=== PATIENT | female | born 1970 | race Caucasian/White ===

== ENCOUNTER 2017-01-30 19:27 | Inpatient (IN) | payer MEDICAID ==
--- NOTE | 2017-01-30 20:02 | ER Document Report ---
ED Medical Screen (RME) - General Chief Complaint: Breathing Difficulty Stated Complaint: DIFFICULTY BREATHING Notes: 46 yo female with hx/o COPD c/o shortness of breath, cough x 1 week. productive , clear sputum. O2 Sat 81% @ triage + smoker using home nebs without improvement PCM - Dr Shi, Maciel lungs coarse with wheezes throughout TRAVEL OUTSIDE OF THE [place] IN LAST 30 DAYS: No - Related Data Allergies/Adverse Reactions: ibuprofen [From Motrin] Allergy (Severe, Verified 04/01/14 15:13) Swelling of Throat Past Medical History - Past Medical History Cardiac Medical History: Denies: Hx Coronary Artery Disease, Hx Heart Attack, Hx Hypertension Pulmonary Medical History: Reports: Hx Asthma, Hx Bronchitis, Hx COPD, Hx Pneumonia Denies: Hx Tuberculosis Neurological Medical History: Denies: Hx Cerebrovascular Accident, Hx Seizures Musculoskeltal Medical History: Denies Hx Arthritis Psychiatric Medical History: Reports: Hx Depression Past Surgical History: Denies: Hx Pacemaker - Immunizations Immunizations up to date: Yes Hx Diphtheria, Pertussis, Tetanus Vaccination: Yes Physical Exam - Vital signs Vitals: Temp Pulse Resp BP Pulse Ox 98.2 F 105 H 16 118/49 L 80 L 01/30/17 19:54 01/30/17 19:54 01/30/17 19:54 01/30/17 19:54 01/30/17 19:54 Course - Vital Signs Vital signs: Temp Pulse Resp BP Pulse Ox 98.2 F 105 H 16 118/49 L 80 L 01/30/17 19:54 01/30/17 19:54 01/30/17 19:54 01/30/17 19:54 01/30/17 19:54
[2017-01-30] MEDS ORDERED: IPRATROPIUM/ALBUTEROL 0.5-2.5 MG/3 ML AMPUL NEB ONE (20:04)
[2017-01-30] MEDS ORDERED: PREDNISONE 20 MG TABLET PO ONE (20:04)
--- NOTE | 2017-01-30 20:24 | ER Document Report ---
ED Respiratory Problem - General Mode of Arrival: Ambulatory TRAVEL OUTSIDE OF THE [place] IN LAST 30 DAYS: No - HPI Patient complains to provider of: COPD Onset: Last week Duration: Worse/persistent Context: Hx COPD, Smoker Cough: Productive Sputum amount: Small Sputum color: Clear At home treatment: Bronchodilators Associated symptoms: Cough, Short of breath, Wheezing <SALVADOR KAUFFMAN - Last Filed: 01/30/17 20:25> <JUANCHO KIMBALL - Last Filed: 01/30/17 23:16> - General Chief Complaint: Breathing Difficulty Stated Complaint: DIFFICULTY BREATHING Notes: Patient is a 46-year-old female presenting to the emergency department chief complaint difficulty breathing for the past week. Patient states that she has been coughing with clear sputum. Patient has a nebulizer at home that she uses every 4 hours, and she states that her breathing worsens when she gets up and walks. Patient is a current every day smoker with history of COPD, and the last time she was admitted for a problem like this was 1 year ago. Patient's primary care physician is Dr. Maciel and her photonics engineering technologist is Dr. Shi (SALVADOR KAUFFMAN) - Related Data Allergies/Adverse Reactions: ibuprofen [From Motrin] Allergy (Severe, Verified 04/01/14 15:13) Swelling of Throat Home Medications: Current Home Medications Ipratropium/Albuterol Sulfate [Duoneb 3 ml Ampul] 3 ml NEB [id number] PRN 01/30/17 [ History] Past Medical History - General Information source: Patient - Social History Smoking Status: Current Every Day Smoker Chew tobacco use (# tins/day): No Frequency of alcohol use: None Drug Abuse: None Family History: Reviewed & Not Pertinent Patient has suicidal ideation: No Patient has homicidal ideation: No - Past Medical History Cardiac Medical History: Denies: Hx Coronary Artery Disease, Hx Heart Attack, Hx Hypertension Pulmonary Medical History: Reports: Hx Asthma, Hx Bronchitis, Hx COPD, Hx Pneumonia Denies: Hx Tuberculosis Neurological Medical History: Denies: Hx Cerebrovascular Accident, Hx Seizures Renal/ Medical History: Denies: Hx Peritoneal Dialysis Musculoskeltal Medical History: Denies Hx Arthritis Psychiatric Medical History: Reports: Hx Depression Past Surgical History: Denies: Hx Pacemaker - Immunizations Immunizations up to date: Yes Hx Diphtheria, Pertussis, Tetanus Vaccination: Yes Hx Pneumococcal Vaccination: 10/08/12 <SALVADOR KAUFFMAN - Last Filed: 01/30/17 20:25> Review of Systems - Review of Systems Constitutional: No symptoms reported EENT: No symptoms reported Cardiovascular: No symptoms reported Respiratory: See HPI, Cough, Short of breath, Sputum, Wheezing Gastrointestinal: No symptoms reported Genitourinary: No symptoms reported Female Genitourinary: No symptoms reported Musculoskeletal: No symptoms reported Skin: No symptoms reported Hematologic/Lymphatic: No symptoms reported Neurological/Psychological: No symptoms reported -: Yes All other systems reviewed and negative <SALVADOR KAUFFMAN - Last Filed: 01/30/17 20:25> Physical Exam - General General appearance: Alert - HEENT Head: Normocephalic, Atraumatic Eyes: Normal Pupils: PERRL - Respiratory Breath sounds: Rhonchi, Wheezing - Diffuse inspiratory and expiratory wheezes and rhonchi. - Cardiovascular Rhythm: Tachycardia Heart sounds: Normal auscultation Murmur: No - Abdominal Inspection: Normal Distension: No distension Bowel sounds: Normal Tenderness: Nontender Organomegaly: No organomegaly - Back Back: Normal, Nontender - Extremities General upper extremity: Normal inspection, Nontender General lower extremity: Normal inspection, Nontender - Neurological Neuro grossly intact: Yes Cognition: Normal [place] Coma Scale Eye Opening: Spontaneous [place] Coma Scale Verbal: Oriented [place] Coma Scale Motor: Obeys Commands [place] Coma Scale Total: 15 Speech: Normal - Psychological Associated symptoms: Normal affect, Normal mood - Skin Skin Temperature: Warm Skin Moisture: Dry Skin Color: Normal <SALVADOR KAUFFMAN - Last Filed: 01/30/17 20:25> Course <SALVADOR KAUFFMAN - Last Filed: 01/30/17 20:25> - Laboratory Result Diagrams: 01/30/17 21:00 01/30/17 21:00 - Diagnostic Test Radiology reviewed: Image reviewed, Reports reviewed - Chest x-ray shows COPD - EKG Interpretation by Me EKG shows normal: Sinus rhythm, [place], Intervals, QRS Complexes, ST-T Waves Rate: Normal - 92 Rhythm: NSR Voltage: Consistant with LVH When compared to previous EKG there are: No significant change - Consults Dr. Maciel Time consulted: 22:45 Consulted provider: will see as inpatient <JUANCHO KIMBALL - Last Filed: 01/30/17 23:16> - Re-evaluation Re-evalutation: 01/30/17 22:48 After breathing treatments and a magnesium, the patient states she feels much better. She still does have diffusewheezes and rhonchi but they are much improved. She is not laboring to breathe as she was earlier. Her pulse ox is only 91% on 2 L nasal cannula. (JUANCHO KIMBALL) - Vital Signs Vital signs: Temp Pulse Resp BP Pulse Ox 98.2 F 105 H 11 L 124/58 L 91 L 01/30/17 19:54 01/30/17 19:54 01/30/17 22:31 01/30/17 22:30 01/30/17 22:31 - Laboratory Laboratory results interpreted by me: 01/30/17 01/30/17 21:00 21:00 WBC 15.4 H Hgb 11.5 L Hct 35.3 L MCH 26.7 L RDW 17.0 H Plt Count 572 H Seg Neutrophils % 79.7 H Lymphocytes % 11.9 L Absolute Neutrophils 12.3 H Chloride 97 L Carbon Dioxide 31 H AST 13 L Critical Care Note - Critical Care Note Total time excluding time spent on procedures (mins): 30 <JUANCHO KIMBALL - Last Filed: 01/30/17 23:16> Discharge <SALVADOR KAUFFMAN - Last Filed: 01/30/17 20:25> - Discharge Admitting Provider: [facility] Unit Admitted: Telemetry <JUANCHO KIMBALL - Last Filed: 01/30/17 23:16> - Discharge Clinical Impression: Chronic obstructive pulmonary disease with acute exacerbation, Hypoxemia, Tobacco abuse, Hypoxemia requiring supplemental oxygen Condition: Good Disposition: ADMITTED INPATIENT Scribe Attestation: 01/30/17 22:49 I personally performed the services described in the documentation, reviewed and edited the documentation which was dictated to the scribe in my presence, and it accurately records my words and actions. (JUANCHO KIMBALL) Scribe Documentation - Scribe Written by Arabella:: Salvador Kauffman 01/30/20172023 acting as scribe for :: Jeovanny <SALVADOR KAUFFMAN - Last Filed: 01/30/17 20:25>
[2017-01-30] MEDS ORDERED: METHYLPREDNISOLONE INJ 125 MG/2 ML SDV IV ONE (20:25)
[2017-01-30 21:23] LABS: ABSOLUTE EOSINOPHILS # (AUTO) 0.1 10^3/uL (0.0-0.6); ABSOLUTE LYMPHOCYTES (AUTO) 1.8 10^3/uL (0.5-4.7); ABSOLUTE MONOCYTES (AUTO) 1.2 10^3/uL (0.1-1.4); ABSOLUTE NEUT (AUTO) 12.3 10^3/uL (1.7-8.2); BASOPHILS % (AUTO) 0.2 % (0-2); EOSINOPHILS % (AUTO) 0.3 % (0-6); HEMATOCRIT 35.3 % (36.0-47.0); HEMOGLOBIN 11.5 g/dL (12.0-15.5); HGB HCT DIFFERENCE -0.8; LYMPHOCYTES % (AUTO) 11.9 % (13-45); MEAN CORPUSCULAR HEMOGLOBIN 26.7 pg (27.0-33.4); MEAN CORPUSCULAR HGB CONC 32.5 g/dL (32.0-36.0); MEAN CORPUSCULAR VOLUME 82 fl (80-97); MONOCYTES % (AUTO) 7.9 % (3-13); SEGMENTED NEUTROPHILS % (AUTO) 79.7 % (42-78); WHITE BLOOD COUNT 15.4 10^3/uL (4.0-10.5)
[2017-01-30] MEDS ORDERED: ALBUTEROL SULFATE 0.083% NEB 2.5 MG/3 ML AMPUL NEB ONE ×2 (21:27→22:45)
[2017-01-30] MEDS ORDERED: MAGNESIUM SULFATE INJ 8 MEQ/2 ML IV ONE (21:27)
[2017-01-30 21:38] LABS: ALBUMIN 3.7 g/dL (3.5-5.0); ALKALINE PHOSPHATASE 118 U/L (38-126); BILIRUBIN,DIRECT 0.2 mg/dL (0.0-0.4); BILIRUBIN,TOTAL 0.3 mg/dL (0.2-1.3); BLOOD UREA NITROGEN 12 mg/dL (7-20); CALCIUM 9.8 mg/dL (8.4-10.2); CHLORIDE 97 mmol/L (98-107); NEONATAL BILIRUBIN RESULT 0.2 mg/dL (0.1-1.1); SODIUM 142.6 mmol/L (137-145)
[2017-01-30 21:39] LABS: ALANINE AMINOTRANSFERASE 22 U/L (9-52); ANION GAP 15 (5-19); ASPARTATE AMINO TRANSFERASE 13 U/L (14-36); CARBON DIOXIDE 31 mmol/L (22-30); CREATININE RESULT 0.56 mg/dL (0.52-1.25); GLUCOSE 95 mg/dL (75-110); POTASSIUM 3.8 mmol/L (3.6-5.0); TOTAL PROTEIN 7.5 g/dL (6.3-8.2)
[2017-01-30] MEDS ORDERED: METHYLPREDNISOLONE INJ 125 MG/2 ML SDV ONE (22:11)
[2017-01-30] MEDS ORDERED: NORMAL SALINE 1000 ML 1,000 ML IV PRN (22:47)
[2017-01-30 22:49] LABS: ADD ON TESTING BLD IN LAB ACKNOWLEDGE
[2017-01-30 22:58] LABS: CREATINE KINASE 35 U/L (30-135)
[2017-01-31] MEDS ORDERED: LEVOFLOXACIN 500 MG/D5W RTU 500 MG/100 ML RTUPB IV ONE
[2017-01-31] MEDS: ACETAMINOPHEN 325 MG TABLET PO PRN ×3 (01:19→22:25)
[2017-01-31] MEDS ORDERED: METHYLPREDNISOLONE INJ 125 MG/2 ML SDV IV SCH ×2 (06:00→12:00)
[2017-01-31] MEDS: LANSOPRAZOLE 15 MG TAB.RAP.DR PO SCH (06:19)
[2017-01-31 06:55] LABS: HEMATOCRIT 33.4 % (36.0-47.0); HEMOGLOBIN 10.9 g/dL (12.0-15.5); HGB HCT DIFFERENCE -0.7; MEAN CORPUSCULAR HGB CONC 32.6 g/dL (32.0-36.0); MEAN CORPUSCULAR VOLUME 83 fl (80-97); RED BLOOD COUNT 4.04 10^6/uL (3.72-5.28); RED CELL DISTRIBUTION WIDTH 17.2 % (11.5-14.0); WHITE BLOOD COUNT 10.6 10^3/uL (4.0-10.5)
[2017-01-31 07:15] LABS: ANION GAP 12 (5-19); BLOOD UREA NITROGEN 10 mg/dL (7-20); CALCIUM 9.4 mg/dL (8.4-10.2); CARBON DIOXIDE 30 mmol/L (22-30); CHLORIDE 98 mmol/L (98-107); CREATININE RESULT 0.42 mg/dL (0.52-1.25); GLUCOSE 136 mg/dL (75-110); POTASSIUM 4.6 mmol/L (3.6-5.0)
[2017-01-31 07:39] LABS: BASOPHILS % (MANUAL) 0 % (0-2); EOSINOPHILS % (MANUAL) 0 % (0-6); LYMPHOCYTES % (MANUAL) 3 % (13-45); TOTAL CELLS COUNTED 100
[2017-01-31 07:40] LABS: ANISOCYTOSIS 1+; HYPOCHROMASIA SLIGHT; POLYCHROMASIA SLIGHT; TOXIC GRANULATION SLIGHT
[2017-01-31] MEDS ORDERED: ENOXAPARIN SODIUM INJ 40 MG/0.4 ML DISP.SYRIN SUBCUT SCH (08:00)
--- NOTE | 2017-01-31 08:16 | EKG REPORT ---
SEVERITY:- ABNORMAL ECG - SINUS RHYTHM PROBABLE LEFT VENTRICULAR HYPERTROPHY : Confirmed by: Olive Escobar 31-Jan-2017 08:15:38
[2017-01-31] MEDS: ALBUTEROL SULFATE 0.083% NEB 2.5 MG/3 ML AMPUL NEB PRN ×2 (08:32→23:40)
[2017-01-31] MEDS: IPRATROPIUM/ALBUTEROL 0.5-2.5 MG/3 ML AMPUL NEB SCH ×4 (08:34→19:36)
[2017-01-31] MEDS ORDERED: ENOXAPARIN SODIUM INJ 30 MG/0.3 ML DISP.SYRIN SUBCUT ONE (10:00)
[2017-01-31 11:01] LABS: ARTERIAL BLOOD BASE EXCESS 6.4 mmol/L; ARTERIAL BLOOD O2 SATURATION 94.7 % (94-98)
--- NOTE | 2017-01-31 12:23 | PDOC CONSULTATION ---
Consultation Consult Date: 01/31/17 Attending physician:: BETSY BOOKER Consult reason:: dyspnea History of Present Illness Admission Date/PCP: 01/30/17 22:47 BETSY BOOKER MD History of Present Illness: GIOVANNI CÁRDENAS is a 46 year old female known to me from prior admissions for exacerbation of asthma and COPD presents with progressive shortness of breath that has been going on for the last 2-3 weeks but has been getting worse. She denies nausea vomiting fevers chills she has a cough is usually dry nonproductive she denies hemoptysis. She admits to occasionally choking on food she eats too fast. Her CT scan on admission is dramatically different than the CT scan from February 2016 which could represent a malignancy hypersensitivity pneumonitis with a superimposed upon pneumonia. Past Medical History Cardiac Medical History: Denies: Coronary Artery Disease, Myocardial Infarction, Hypertension Pulmonary Medical History: Reports: Asthma, Bronchitis, Chronic Obstructive Pulmonary Disease (COPD), Pneumonia Denies: Tuberculosis Neurological Medical History: Denies: Seizures Musculoskeltal Medical History: Denies: Arthritis Psychiatric Medical History: Reports: Depression Hematology: Denies: Anemia Past Surgical History Past Surgical History: Denies: Pacemaker Social History Information Source: Patient, [facility] Records Smoking Status: Former Smoker Last Time Smoked: AUGUST 2016 Passive smoke exposure as: Both Frequency of Alcohol Use: None Hx Recreational Drug Use: No Drugs: None Hx Prescription Drug Abuse: No Family History Family History: Reviewed & Not Pertinent Parental Family History Reviewed: Yes Children Family History Reviewed: Yes Sibling(s) Family History Reviewed.: Yes Medication/Allergy Home Medications: Albuterol Sulfate [Proair HFA Inhalation Aerosol 8.5 gm MDI] 2 puff IH Q4 Fluticasone Propionate [Flonase Nasal [place] 50 Mcg/[place] 16 gm] 1 spray NASL DAILY 01/31/17 Ipratropium/Albuterol Sulfate [Combivent Respimat Inhal [place]] 1 puff IH QID Ipratropium/Albuterol Sulfate [Duoneb 3 ml Ampul] 3 ml NEB RTDAILY 01/31/17 Montelukast Sodium [Singulair 10 mg Tablet] 10 mg PO QPM 01/31/17 Allergies/Adverse Reactions: ibuprofen [From Motrin] Allergy (Severe, Verified 01/31/17 02:27) Swelling of Throat Physical Exam Vital Signs: Temp Pulse Resp BP Pulse Ox 97.4 F 82 18 116/61 90 L 01/31/17 07:41 01/31/17 07:41 01/31/17 07:41 01/31/17 07:41 01/31/17 07:41 Intake & Output 01/30/17 01/31/17 02/01/17 06:59 06:59 06:59 Intake Total 655 Balance 655 Weight 43.1 kg General appearance: PRESENT: disheveled, mild distress, thin Head exam: PRESENT: atraumatic, normocephalic Eye exam: PRESENT: conjunctiva pale, EOMI, PERRLA Mouth exam: PRESENT: moist, neck supple Neck exam: ABSENT: carotid bruit, JVD, lymphadenopathy, thyromegaly Respiratory exam: PRESENT: decreased breath sounds, prolonged expiratory phas, rales, rhonchi, symmetrical, unlabored, wheezes Cardiovascular exam: PRESENT: irregular rhythm Pulses: PRESENT: normal radial pulses GI/Abdominal exam: PRESENT: normal bowel sounds, soft. ABSENT: distended, guarding, mass, organolmegaly, rebound, tenderness Rectal exam: PRESENT: deferred Musculoskeletal exam: PRESENT: normal inspection Neurological exam: PRESENT: alert, awake Psychiatric exam: PRESENT: normal mood Skin exam: PRESENT: dry, warm Results Laboratory Results: 01/31/17 05:55 01/31/17 05:55 01/31/17 01/31/17 05:55 05:55 WBC 10.6 H RBC 4.04 Hgb 10.9 L Hct 33.4 L MCV 83 MCH 27.0 MCHC 32.6 RDW 17.2 H Plt Count 474 H Seg Neutrophils % Not Reportable Lymphocytes % Not Reportable Monocytes % Not Reportable Eosinophils % Not Reportable Basophils % Not Reportable Absolute Neutrophils Not Reportable Absolute Lymphocytes Not Reportable Absolute Monocytes Not Reportable Absolute Eosinophils Not Reportable Absolute Basophils Not Reportable Sodium 140.0 Potassium 4.6 Chloride 98 Carbon Dioxide 30 Anion Gap 12 BUN 10 Creatinine 0.42 L Est GFR ( Amer) > 60 Est GFR (Non-Af Amer) > 60 Glucose 136 H Calcium 9.4 Impressions: Chest/Abdomen CTA 01/30/17 00:00 IMPRESSION: No pulmonary emboli. Marked interstitial and emphysematous changes. Acute opacities in the right middle lobe and at the right lung base. Consistent with pneumonia. There has been interval development of marked hilar and mediastinal adenopathy. Suspicious for malignancy. Chest X-Ray 01/30/17 20:27 IMPRESSION: COPD. NO ACUTE RADIOGRAPHIC FINDING IN THE CHEST. Assessment & Plan - Diagnosis (4) Apical bullous lung disease Is this a current diagnosis for this admission?: YesPlan: We will check alpha 1 antitrypsin phenotype and genotype
[2017-01-31] MEDS ORDERED: INFLUENZA ADLT QUAD (36MOS+) 2016-17 VAC 0.5 ML SYR IM PRN (12:55)
--- NOTE | 2017-01-31 13:25 | PDOC H&P ---
History of Present Illness Admission Date/PCP: 01/30/17 22:47 BETSY BOOKER MD Patient complains of: Shortness of the breath History of Present Illness: GIOVANNI CÁRDENAS is a 46 year old female known to me from prior admissions for exacerbation of asthma and COPD presents with progressive shortness of breath that has been going on for the last 2-3 weeks but has been getting worse. She denies nausea vomiting fevers chills she has a cough is usually dry nonproductive she denies hemoptysis. She admits to occasionally choking on food she eats too fast. Her CT scan on admission is dramatically different than the CT scan from February 2016 which could represent a malignancy hypersensitivity pneumonitis with a superimposed upon pneumonia. Patient is very noncompliance patient seen in my office last 2015 and patient's neighbor come and see very properly the patient's last smoking was August according to the patient's patient's currently feeling better after the steroid and nebulizer treatments without any chest pain and no fever Past Medical History Cardiac Medical History: Denies: Coronary Artery Disease, Myocardial Infarction, Hypertension Pulmonary Medical History: Reports: Asthma, Bronchitis, Chronic Obstructive Pulmonary Disease (COPD), Pneumonia Denies: Tuberculosis Neurological Medical History: Denies: Seizures Musculoskeltal Medical History: Denies: Arthritis Psychiatric Medical History: Reports: Depression Hematology: Denies: Anemia Past Surgical History Past Surgical History: Denies: Pacemaker Social History Smoking Status: Former Smoker Last Time Smoked: AUGUST 2016 Frequency of Alcohol Use: None Hx Recreational Drug Use: No Drugs: None Hx Prescription Drug Abuse: No Family History Family History: Reviewed & Not Pertinent Parental Family History Reviewed: Yes Children Family History Reviewed: Yes Sibling(s) Family History Reviewed.: Yes Medication/Allergy Home Medications: Albuterol Sulfate [Proair HFA Inhalation Aerosol 8.5 gm MDI] 2 puff IH Q4 Fluticasone Propionate [Flonase Nasal [place] 50 Mcg/[place] 16 gm] 1 spray NASL DAILY 01/31/17 Ipratropium/Albuterol Sulfate [Combivent Respimat Inhal [place]] 1 puff IH QID Ipratropium/Albuterol Sulfate [Duoneb 3 ml Ampul] 3 ml NEB RTDAILY 01/31/17 Montelukast Sodium [Singulair 10 mg Tablet] 10 mg PO QPM 01/31/17 Allergies/Adverse Reactions: ibuprofen [From Motrin] Allergy (Severe, Verified 01/31/17 02:27) Swelling of Throat Review of Systems Constitutional: ABSENT: chills, fever(s), headache(s), weight gain, weight loss Eyes: ABSENT: visual disturbances Ears: ABSENT: hearing changes Cardiovascular: PRESENT: dyspnea on exertion. ABSENT: chest pain, edema, orthropnea, palpitations Respiratory: PRESENT: cough, dyspnea, sputum. ABSENT: hemoptysis Gastrointestinal: ABSENT: abdominal pain, constipation, diarrhea, hematemesis, hematochezia, nausea, vomiting Genitourinary: ABSENT: dysuria, hematuria Musculoskeletal: ABSENT: joint swelling Integumentary: ABSENT: rash, wounds Neurological: ABSENT: abnormal gait, abnormal speech, confusion, dizziness, focal weakness, syncope Psychiatric: ABSENT: anxiety, depression, homidical ideation, suicidal ideation Endocrine: ABSENT: cold intolerance, heat intolerance, menstrual abnormalities, polydipsia, polyuria Hematologic/Lymphatic: ABSENT: easy bleeding, easy bruising, lymphadenopathy Physical Exam Vital Signs: Temp Pulse Resp BP Pulse Ox 97.4 F 88 22 H 116/61 90 L 01/31/17 11:45 01/31/17 12:05 01/31/17 12:05 01/31/17 11:45 01/31/17 12:05 Pulse Oximeter Continuous Start: 01/31/17 09: 47 Freq: RTQ4 Status: Active Document 01/31/17 12:05 LDA (Rec: 01/31/17 13:12 LDA [email or web address]) Pulse Oximetry Assessment Oxygen Saturation (92-100) 90 Oxygen Flow Rate (L/min) 6 Oxygen Delivery Method Nasal Cannula Equipment Usage Initial Set Up Continuous Pulse Oximeter 24 Hour Charge Charge Now Continuous SpO2 Machine # 0 Intake & Output 01/30/17 01/31/17 02/01/17 06:59 06:59 06:59 Intake Total 655 Balance 655 Weight 43.1 kg General appearance: PRESENT: no acute distress, well-developed, well-nourished Head exam: PRESENT: atraumatic, normocephalic Eye exam: PRESENT: conjunctiva pink, EOMI, PERRLA. ABSENT: scleral icterus Ear exam: PRESENT: normal external ear exam Mouth exam: PRESENT: moist, tongue midline Neck exam: PRESENT: full ROM. ABSENT: carotid bruit, JVD, lymphadenopathy, thyromegaly Respiratory exam: PRESENT: wheezes Cardiovascular exam: PRESENT: RRR. ABSENT: diastolic murmur, rubs, systolic murmur Pulses: PRESENT: normal dorsalis pedis pul, +2 pedal pulses bilateral Vascular exam: PRESENT: normal capillary refill GI/Abdominal exam: PRESENT: normal bowel sounds, soft. ABSENT: distended, guarding, mass, organolmegaly, rebound, tenderness Rectal exam: PRESENT: deferred Neurological exam: PRESENT: alert, awake, oriented to person, oriented to place , oriented to time, oriented to situation, CN II-XII grossly intact. ABSENT: motor sensory deficit Psychiatric exam: PRESENT: appropriate affect, normal mood. ABSENT: homicidal ideation, suicidal ideation Skin exam: PRESENT: dry, intact, warm. ABSENT: cyanosis, rash Results Laboratory Results: 01/31/17 05:55 01/31/17 05:55 01/31/17 01/31/17 01/31/17 05:55 05:55 10:35 WBC 10.6 H RBC 4.04 Hgb 10.9 L Hct 33.4 L MCV 83 MCH 27.0 MCHC 32.6 RDW 17.2 H Plt Count 474 H Seg Neutrophils % Not Reportable Lymphocytes % Not Reportable Monocytes % Not Reportable Eosinophils % Not Reportable Basophils % Not Reportable Absolute Neutrophils Not Reportable Absolute Lymphocytes Not Reportable Absolute Monocytes Not Reportable Absolute Eosinophils Not Reportable Absolute Basophils Not Reportable Carbonic Acid 1.39 H HCO3/H2CO3 Ratio 22:1 ABG pH 7.45 ABG pCO2 46.3 H ABG pO2 70.7 L ABG HCO3 31.3 H ABG O2 Saturation 94.7 ABG Base Excess 6.4 FiO2 6L Sodium 140.0 Potassium 4.6 Chloride 98 Carbon Dioxide 30 Anion Gap 12 BUN 10 Creatinine 0.42 L Est GFR ( Amer) > 60 Est GFR (Non-Af Amer) > 60 Glucose 136 H Calcium 9.4 Impressions: Chest/Abdomen CTA 01/30/17 00:00 IMPRESSION: No pulmonary emboli. Marked interstitial and emphysematous changes. Acute opacities in the right middle lobe and at the right lung base. Consistent with pneumonia. There has been interval development of marked hilar and mediastinal adenopathy. Suspicious for malignancy. Chest X-Ray 01/30/17 20:27 IMPRESSION: COPD. NO ACUTE RADIOGRAPHIC FINDING IN THE CHEST. Assessment & Plan - Diagnosis (1) Acute exacerbation of chronic obstructive pulmonary disease (COPD) Is this a current diagnosis for this admission?: YesPlan: Continues to IV steroid and consult the doctor Curseen's and continues the current other medications (2) Hypoxemia Is this a current diagnosis for this admission?: YesPlan: Most likely of the end-stage COPD will continues the current medications (3) Mediastinal adenopathy Is this a current diagnosis for this admission?: YesPlan: Follow with the pulmonary for further rule out any underlying malignancy (4) Idiopathic scoliosis and kyphoscoliosis Is this a current diagnosis for this admission?: YesPlan: Stable - Time Time Spent: 30 to 50 Minutes Medications reviewed and adjusted accordingly: Yes Anticipated discharge: Home Within: Other - Inpatient Certification Medical Necessity: Need For IV Fluids, Need for IV Antibiotics Post Hospital Care: D/C Legal Instruments Examiner Documentation - Plan Summary Plan Summary: Continues to IV steroid IV antibiotic and nebulizer treatments
[2017-01-31] MEDS: METHYLPREDNISOLONE INJ 125 MG/2 ML SDV IV SCH ×2 (16:08→22:17)
[2017-01-31] MEDS ORDERED: LEVOFLOXACIN 500 MG/D5W RTU 500 MG/100 ML RTUPB IV SCH ×2 (22:00)
[2017-02-01 06:00] LABS: HEMATOCRIT 32.6 % (36.0-47.0); HEMOGLOBIN 10.4 g/dL (12.0-15.5); HGB HCT DIFFERENCE -1.4; MEAN CORPUSCULAR HEMOGLOBIN 26.7 pg (27.0-33.4); MEAN CORPUSCULAR HGB CONC 32.1 g/dL (32.0-36.0); MEAN CORPUSCULAR VOLUME 83 fl (80-97); RED BLOOD COUNT 3.92 10^6/uL (3.72-5.28); RED CELL DISTRIBUTION WIDTH 17.7 % (11.5-14.0); WHITE BLOOD COUNT 7.1 10^3/uL (4.0-10.5)
[2017-02-01] MEDS: LANSOPRAZOLE 15 MG TAB.RAP.DR PO SCH (06:01)
[2017-02-01] MEDS: METHYLPREDNISOLONE INJ 125 MG/2 ML SDV IV SCH (06:03)
[2017-02-01 06:16] LABS: ANION GAP 13 (5-19); BLOOD UREA NITROGEN 15 mg/dL (7-20); CALCIUM 9.6 mg/dL (8.4-10.2); CARBON DIOXIDE 26 mmol/L (22-30); CHLORIDE 102 mmol/L (98-107); CREATININE RESULT 0.42 mg/dL (0.52-1.25); GLUCOSE 168 mg/dL (75-110); POTASSIUM 4.5 mmol/L (3.6-5.0); SODIUM 141.4 mmol/L (137-145)
[2017-02-01 06:31] LABS: BASOPHILS % (MANUAL) 0 % (0-2); EOSINOPHILS % (MANUAL) 0 % (0-6); LYMPHOCYTES % (MANUAL) 9 % (13-45); TOTAL CELLS COUNTED 100
[2017-02-01 06:33] LABS: HYPOCHROMASIA SLIGHT; OVALOCYTES SLIGHT; POIKILOCYTOSIS SLIGHT; POLYCHROMASIA SLIGHT; TOXIC GRANULATION SLIGHT
[2017-02-01] MEDS ORDERED: ENOXAPARIN SODIUM INJ 30 MG/0.3 ML DISP.SYRIN SUBCUT SCH (08:00)
[2017-02-01] MEDS: IPRATROPIUM/ALBUTEROL 0.5-2.5 MG/3 ML AMPUL NEB SCH ×3 (08:20→16:24)
--- NOTE | 2017-02-01 08:28 | PDOC PROGRESS REPORT ---
Subjective Progress Note for:: 02/01/17 Subjective:: Patient is currently doing fair much better compared to yesterday's denied any chest pain denied any shortness of the breath patient oxygen saturations currently 90 persons in the 2 L nasal cannula I think patients might be require oxygen at home we will try to ambulate the patient's today and evaluated by the respiratory therapist for the oxygen saturations and consult the mechanical planner Physical Exam Vital Signs: Temp Pulse Resp BP Pulse Ox 97.4 F 111 H 19 111/55 L 92 02/01/17 03:50 02/01/17 07:00 02/01/17 03:50 02/01/17 03:50 02/01/17 04:00 Pulse Oximeter Continuous Start: 01/31/17 09: 47 Freq: RTQ4 Status: Active Document 02/01/17 04:00 SFL (Rec: 02/01/17 05:50 [email or web address] [email or web address]) Pulse Oximetry Assessment Oxygen Saturation (92-100) 92 Oxygen Flow Rate (L/min) 5 Oxygen Delivery Method Nasal Cannula Equipment Usage Equipment in Use Continuous SpO2 Machine # 1 Intake & Output 01/31/17 02/01/17 02/02/17 06:59 06:59 06:59 Intake Total 655 2829 Output Total 300 Balance 655 2529 Weight 43.1 kg 43 kg General appearance: PRESENT: no acute distress, well-developed, well-nourished Head exam: PRESENT: atraumatic, normocephalic Eye exam: PRESENT: conjunctiva pink, EOMI, PERRLA. ABSENT: scleral icterus Ear exam: PRESENT: normal external ear exam Mouth exam: PRESENT: moist, tongue midline Neck exam: PRESENT: full ROM. ABSENT: carotid bruit, JVD, lymphadenopathy, thyromegaly Cardiovascular exam: PRESENT: RRR. ABSENT: diastolic murmur, rubs, systolic murmur Pulses: PRESENT: normal dorsalis pedis pul, +2 pedal pulses bilateral Vascular exam: PRESENT: normal capillary refill GI/Abdominal exam: PRESENT: normal bowel sounds, soft. ABSENT: distended, guarding, mass, organolmegaly, rebound, tenderness Rectal exam: PRESENT: deferred Neurological exam: PRESENT: alert, awake, oriented to person, oriented to place , oriented to time, oriented to situation, CN II-XII grossly intact. ABSENT: motor sensory deficit Psychiatric exam: PRESENT: appropriate affect, normal mood. ABSENT: homicidal ideation, suicidal ideation Skin exam: PRESENT: dry, intact, warm. ABSENT: cyanosis, rash Results Laboratory Results: 02/01/17 04:28 02/01/17 04:28 01/31/17 02/01/17 02/01/17 10:35 04:28 04:28 WBC 7.1 RBC 3.92 Hgb 10.4 L Hct 32.6 L MCV 83 MCH 26.7 L MCHC 32.1 RDW 17.7 H Plt Count 428 Seg Neutrophils % Not Reportable Lymphocytes % Not Reportable Monocytes % Not Reportable Eosinophils % Not Reportable Basophils % Not Reportable Absolute Neutrophils Not Reportable Absolute Lymphocytes Not Reportable Absolute Monocytes Not Reportable Absolute Eosinophils Not Reportable Absolute Basophils Not Reportable Carbonic Acid 1.39 H HCO3/H2CO3 Ratio 22:1 ABG pH 7.45 ABG pCO2 46.3 H ABG pO2 70.7 L ABG HCO3 31.3 H ABG O2 Saturation 94.7 ABG Base Excess 6.4 FiO2 6L Sodium 141.4 Potassium 4.5 Chloride 102 Carbon Dioxide 26 Anion Gap 13 BUN 15 Creatinine 0.42 L Est GFR ( Amer) > 60 Est GFR (Non-Af Amer) > 60 Glucose 168 H Calcium 9.6 Impressions: Chest/Abdomen CTA 01/30/17 00:00 IMPRESSION: No pulmonary emboli. Marked interstitial and emphysematous changes. Acute opacities in the right middle lobe and at the right lung base. Consistent with pneumonia. There has been interval development of marked hilar and mediastinal adenopathy. Suspicious for malignancy. Chest X-Ray 01/30/17 20:27 IMPRESSION: COPD. NO ACUTE RADIOGRAPHIC FINDING IN THE CHEST. Assessment & Plan - Diagnosis (1) Acute exacerbation of chronic obstructive pulmonary disease (COPD) Is this a current diagnosis for this admission?: YesPlan: Continues to IV steroid and consult the doctor Curseen's and continues the current other medications (2) Hypoxemia Is this a current diagnosis for this admission?: YesPlan: Most likely of the end-stage COPD will continues the current medications (3) Mediastinal adenopathy Is this a current diagnosis for this admission?: YesPlan: Follow with the pulmonary for further rule out any underlying malignancy (4) Idiopathic scoliosis and kyphoscoliosis Is this a current diagnosis for this admission?: YesPlan: Stable - Time Time Spent with patient: 15-24 minutes Medications reviewed and adjusted accordingly: Yes Anticipated discharge: Home Within: Other - Inpatient Certification Medical Necessity: Need Close Monitoring Due to Risk of Patient Decompensation, Need for IV Antibiotics Post Hospital Care: D/C Book Mender Documentation - Plan Summary Plan Summary: Continues the current medications
[2017-02-01] MEDS ORDERED: METHYLPREDNISOLONE INJ 125 MG/2 ML SDV IV SCH (14:00)
[2017-02-01 17:26] VITALS: BP 134/78
--- NOTE | 2017-02-02 15:13 | PDOC PROGRESS REPORT ---
Subjective Progress Note for:: 02/02/17 Subjective:: better still short of breath Physical Exam Vital Signs: Temp Pulse Resp BP Pulse Ox 98.2 F 105 H 22 H 129/67 H 91 L 02/01/17 16:22 02/01/17 16:22 02/01/17 16:22 02/01/17 16:22 02/01/17 16:22 Pulse Oximeter Continuous Start: 01/31/17 09: 47 Freq: RTQ4 Status: Discharge Document 02/01/17 16:00 JDR (Rec: 02/01/17 17:50 [email or web address] [email or web address]) Pulse Oximetry Assessment Oxygen Saturation (92-100) 91 Oxygen Flow Rate (L/min) 5 Oxygen Delivery Method Nasal Cannula Equipment Usage Equipment in Use Continuous SpO2 Machine # 1 Intake & Output 02/01/17 02/02/17 02/03/17 06:59 06:59 06:59 Intake Total 2829 474 Output Total 300 600 Balance 2529 -126 Weight 43 kg General appearance: PRESENT: cooperative, thin, other - severe kypho-scoliosis Head exam: PRESENT: atraumatic, normocephalic Eye exam: PRESENT: conjunctiva pale, EOMI Mouth exam: PRESENT: neck supple Neck exam: ABSENT: carotid bruit, JVD, lymphadenopathy, thyromegaly Respiratory exam: PRESENT: crackles, decreased breath sounds, prolonged expiratory phas, rhonchi, symmetrical, unlabored, wheezes Cardiovascular exam: PRESENT: RRR, +S1, +S2 Pulses: PRESENT: normal radial pulses GI/Abdominal exam: PRESENT: normal bowel sounds, soft. ABSENT: distended, guarding, mass, organolmegaly, rebound, tenderness Rectal exam: PRESENT: deferred Musculoskeletal exam: PRESENT: other - thoracic spinal distosion Neurological exam: PRESENT: alert, awake Psychiatric exam: PRESENT: normal mood Skin exam: PRESENT: dry, warm Results Laboratory Results: 02/01/17 04:28 02/01/17 04:28 Impressions: Chest/Abdomen CTA 01/30/17 00:00 IMPRESSION: No pulmonary emboli. Marked interstitial and emphysematous changes. Acute opacities in the right middle lobe and at the right lung base. Consistent with pneumonia. There has been interval development of marked hilar and mediastinal adenopathy. Suspicious for malignancy. Chest X-Ray 01/30/17 20:27 IMPRESSION: COPD. NO ACUTE RADIOGRAPHIC FINDING IN THE CHEST. Assessment & Plan - Diagnosis (1) Mediastinal adenopathy Is this a current diagnosis for this admission?: Yes (2) Acute exacerbation of chronic obstructive pulmonary disease (COPD) Is this a current diagnosis for this admission?: Yes (3) Hypoxemia Is this a current diagnosis for this admission?: YesPlan: discussedat length need for O2 poor status of her lung smoking as well as her 2 young children;discussed at lengthnecessity of completeing her work up and not leaving AMA (4) Apical bullous lung disease Is this a current diagnosis for this admission?: YesPlan: We will check alpha 1 antitrypsin phenotype and genotype (5) Tobacco abuse Is this a current diagnosis for this admission?: YesPlan: stop smoking (6) Tobacco abuse counseling Is this a current diagnosis for this admission?: YesPlan: discussed at length risk and dangers associated with conyinued tobacco use - Time Time Spent with patient: 35 or more minutes - 50 min
--- NOTE | 2017-02-05 16:01 | PDOC DISCHARGE SUMMARY ---
General - Admit/Disc Date/PCP Admission Date/Primary Care Provider: 01/30/17 22:47 BETSY BOOKER MD Discharge Date: 02/01/17 - Discharge Diagnosis (1) Acute exacerbation of chronic obstructive pulmonary disease (COPD) Is this a current diagnosis for this admission?: YesSummary: Patient's left AMA (2) Hypoxemia Is this a current diagnosis for this admission?: YesSummary: Patient's left AMA (3) Mediastinal adenopathy Is this a current diagnosis for this admission?: YesSummary: Patient see the doctor Jose Guadalupe's for that (4) Idiopathic scoliosis and kyphoscoliosis Is this a current diagnosis for this admission?: YesSummary: Stable - Additional Information Discharge Activity: Balance Activity w/Rest, Energy Conservation Home Medications: Albuterol Sulfate [Proair HFA Inhalation Aerosol 8.5 gm MDI] 2 puff IH Q4 Fluticasone Propionate [Flonase Nasal [place] 50 Mcg/[place] 16 gm] 1 spray NASL DAILY 01/31/17 Ipratropium/Albuterol Sulfate [Combivent Respimat Inhal [place]] 1 puff IH QID Ipratropium/Albuterol Sulfate [Duoneb 3 ml Ampul] 3 ml NEB RTDAILY 01/31/17 Montelukast Sodium [Singulair 10 mg Tablet] 10 mg PO QPM 01/31/17 History of Present Illness History of Present Illness: GIOVANNI CÁRDENAS is a 46 year old female known to me from prior admissions for exacerbation of asthma and COPD presents with progressive shortness of breath that has been going on for the last 2-3 weeks but has been getting worse. She denies nausea vomiting fevers chills she has a cough is usually dry nonproductive she denies hemoptysis. She admits to occasionally choking on food she eats too fast. Her CT scan on admission is dramatically different than the CT scan from February 2016 which could represent a malignancy hypersensitivity pneumonitis with a superimposed upon pneumonia. Patient is very noncompliance patient seen in my office last 2015 and patient's neighbor come and see very properly the patient's last smoking was August according to the patient's patient's currently feeling better after the steroid and nebulizer treatments without any chest pain and no fever Hospital Course Hospital Course: This is the patient is a very noncompliance and admitted and Dr. Shi was consulted patient was IV steroid and nebulizer treatment and arrange probably home oxygen's and Manuel the IV steroid and patient was doing better but still patients require oxygen's and still need all the medications.Patients who basically the nurses calling to set patient's does not want to stay in the hospital and patient was fully alert awake oriented 4 and the patient's left AMA and patient understand very well about the all this and still COPD with possible underlying hypoxia and the left AMA causing the severe respiratory distress and causing the acute cardiorespiratory failure and the patient understand very well about that but patient still does not want to stay in the hospital on the patient's left AMA I discussed with the patient if the patient is a noncompliance I do not think so I need to see her anymore because I do not think so I can help the patient's anymore patient is to find the other physician in the next 30 days Physical Exam Vital Signs: Temp Pulse Resp BP Pulse Ox 98.2 F 105 H 22 H 129/67 H 91 L 02/01/17 16:22 02/01/17 16:22 02/01/17 16:22 02/01/17 16:22 02/01/17 16:22 Pulse Oximeter Continuous Start: 01/31/17 09: 47 Freq: RTQ4 Status: Discharge Document 02/01/17 16:00 [facility] (Rec: 02/01/17 17:50 J [email or web address]) Pulse Oximetry Assessment Oxygen Saturation (92-100) 91 Oxygen Flow Rate (L/min) 5 Oxygen Delivery Method Nasal Cannula Equipment Usage Equipment in Use Continuous SpO2 Machine # 1 Results Laboratory Results: 02/01/17 04:28 02/01/17 04:28 Impressions: Chest/Abdomen CTA 01/30/17 00:00 IMPRESSION: No pulmonary emboli. Marked interstitial and emphysematous changes. Acute opacities in the right middle lobe and at the right lung base. Consistent with pneumonia. There has been interval development of marked hilar and mediastinal adenopathy. Suspicious for malignancy. Chest X-Ray 01/30/17 20:27 IMPRESSION: COPD. NO ACUTE RADIOGRAPHIC FINDING IN THE CHEST. Plan Time Spent: Less than 30 Minutes - Patient's left AMA the hospitals and I hope the patient's continues to follow with his current or chronic medical problems which is patient's never following office
== END 2017-02-01 17:05 | disposition left against medical advice (07) | DRG 192 ==
LOC: ER 19:27 → EH 22:47 → UNDOADMIN 22:54 → EH 22:54 → 4N 01-31 00:35
PROVIDERS: ADMIT Family Medicine; ATTEND Family Medicine
PROC: 3E0234Z Introduction of Serum, Toxoid and Vaccine into Muscle, Percutaneous Approach (ICD-10-PCS; principal; 2017-02-01)
DX: J44.1 Chronic obstructive pulmonary disease with (acute) exacerbation (principal); R09.02 Hypoxemia; R59.0 Localized enlarged lymph nodes; M41.20 Other idiopathic scoliosis, site unspecified; F32.9 Major depressive disorder, single episode, unspecified; F17.210 Nicotine dependence, cigarettes, uncomplicated; Z91.19 Patient's noncompliance with other medical treatment and regimen; Z79.51 Long term (current) use of inhaled steroids; Z71.6 Tobacco abuse counseling; Z23 Encounter for immunization
CPT/HCPCS: 36415; 36600; 71010; 71275; 80048; 80053; 81332; 82550; 82803; 84484; 84703; 85025; 87040; 90686; 93005; 93010; 94640; 94762; 96374; 96375; 99291; J1650; J1956; J2930; J3475; J7030; J7512; J7620

== ENCOUNTER → 2018-08-05 | Outpatient (CLI) | payer MEDICAID ==
--- NOTE | 2018-08-05 15:20 | RADIOLOGY REPORT (SQ) ---
EXAM DESCRIPTION: CT CHEST WITH COMPLETED DATE/TIME: 08/05/2018 2:56 pm REASON FOR STUDY: R59.0 LOCALIZED ENLARGED LYMPH NODES R59.0 LOCALIZED ENLARGED LYMPH NODES COMPARISON: CT angio chest 01/30/2017, 02/03/2016 TECHNIQUE: CT scan of the chest performed using helical scanning technique with dynamic intravenous contrast injection. Images reviewed with lung, soft tissue and bone windows. Reconstructed coronal and sagittal MPR and MIP images reviewed. All images stored on PACS. All CT scanners at this facility use dose modulation, iterative reconstruction, and/or weight based d osing when appropriate to reduce radiation dose to as low as reasonably achievable (ALARA). [facility]: Dose Right [facility]: CareDose [facility]: Dose Right [facility]: Teradose 4D [facility]: Modern Feed CONTRAST TYPE AND DOSE: contrast/concentration: Isovue 350.00 mg/ml; Total Contrast Delivered: 80.0 ml; Total Saline Delivered: 55.0 ml RENAL FUNCTION: Not required because of age RADIATION DOSE: CT Rad equipment meets quality standard of care and radiation dose reduction techniq ues were employed. CTDIvol: 2.8 mGy. DLP: 114 mGy-cm. . LIMITATIONS: None. FINDINGS: LUNGS AND PLEURA: Diffuse pattern of pulmonary fibrosis, with thickened interlobular septa and honeycomb appearance around the periphery of the upper lobes. There is also centrilobular emphy sema with enlarged airspaces throughout the bilateral upper lobes. No acute infiltrates. No pleural effusion. No pneumothorax. On axial image number 45, a 6 mm nodule is present in the right upper lobe near the major fissure. S erial CT recommended to exclude growth or change in this finding, with uncontrasted CT chest in 1 yea r. HILAR AND MEDIASTINAL STRUCTURES: No identified masses or abnormal nodes. HEART AND VASCULAR STRUCTURES: No aneurysm or dissection. No central pulmonary emboli. No pericardi al effusion. HARDWARE: None in the chest. UPPER ABDOMEN: No significant findings. Limited exam. THYROID AND OTHER SOFT TISSUES: No masses. No adenopathy. BONES: Significant convex rightward thoracic and convex leftward lumbar scoliosis OTHER: No other significant finding. IMPRESSION: Chronic appearing postinflammatory changes throughout both lungs. Obstructive disease o f the lung apices. 6 mm nodule right upper lobe near the major fissure, consider follow-up non contrasted CT in 1 year COMMENT: MIMI CRITERIA FOR FOLLOW-UP OF PULMONARY NODULES Incidentally detected new nodules in persons 35 or older. HIGH RISK: History of smoking or other known risk factors. <6mm single solid nodule: LOW RISK: no routine followup. HIGH RISK: optional CT 12 mo. TECHNICAL DOCUMENTATION: JOB ID: [id number] Quality ID # [id number]: Final reports with documentation of one or more dose reduction techniques (e.g., Au tomated exposure control, adjustment of the mA and/or kV according to patient size, use of iterative reconstruction technique) 2010 [employer]- All Rights Reserved Reading location - IP/workstation name: [email or web address]
== END ==
LOC: RAD 15:56
PROVIDERS: ATTEND Physician Assistant
DX: R59.0 Localized enlarged lymph nodes (principal); J44.9 Chronic obstructive pulmonary disease, unspecified
CPT/HCPCS: 71260

== ENCOUNTER 2020-08-12 19:28 | Inpatient (IN) | payer MEDICAID ==
[2020-08-12] MEDS ORDERED: IPRATROPIUM/ALBUTEROL 0.5-2.5 MG/3 ML AMPUL NEB ONE (20:29)
[2020-08-12] MEDS ORDERED: METHYLPREDNISOLONE INJ 125 MG/2 ML SDV IV ONE (20:29)
[2020-08-12] MEDS ORDERED: ALBUTEROL SULFATE 0.083% NEB 2.5 MG/3 ML AMPUL NEB ONE (20:31)
--- NOTE | 2020-08-12 20:31 | ER Document Report ---
ED Medical Screen (RME) - General Chief Complaint: Shortness Of Breath Stated Complaint: SHORTNESS OF BREATH, COUGH Time Seen by Provider: 08/12/20 19:36 Notes: Patient presents with difficulty breathing for the past week. Patient denies any fever. Patient does report a history of asthma, allergies and COPD. Patient states that she no longer smokes. Patient denies any use of home oxygen. Nursing staff state that patient's initial oxygen saturation was in the 70s and oxygen had to be applied. Patient is currently on 4 L nasal cannula with a sat in the 90s. I have greeted and performed a rapid initial assessment of this patient. A comprehensive ED assessment and evaluation of the patient, analysis of test results and completion of the medical decision making process will be conducted by additional ED providers. TRAVEL OUTSIDE OF THE [place] IN LAST 30 DAYS: No - Related Data Allergies/Adverse Reactions: ibuprofen [From Motrin] Allergy (Severe, Verified 01/31/17 02:27) Swelling of Throat Past Medical History - Past Medical History Cardiac Medical History: Denies: Hx Coronary Artery Disease, Hx Heart Attack, Hx Hypertension Pulmonary Medical History: Reports: Hx Asthma, Hx Bronchitis, Hx COPD, Hx Pneumonia Denies: Hx Tuberculosis Neurological Medical History: Denies: Hx Cerebrovascular Accident, Hx Seizures Renal/ Medical History: Denies: Hx Peritoneal Dialysis Musculoskeltal Medical History: Denies Hx Arthritis Psychiatric Medical History: Reports: Hx Depression Past Surgical History: Denies: Hx Pacemaker - Immunizations Immunizations up to date: Yes Hx Diphtheria, Pertussis, Tetanus Vaccination: Yes Physical Exam - Vital signs Vitals: Temp Pulse Resp BP Pulse Ox 98.7 F 56 L 16 145/74 H 72 L 08/12/20 19:42 08/12/20 19:42 08/12/20 19:42 08/12/20 19:42 08/12/20 19:42 - Respiratory Respiratory status: Tachypnea Breath sounds: Nonproductive cough, Wheezing Course - Vital Signs Vital signs: Temp Pulse Resp BP Pulse Ox 98.7 F 56 L 15 122/71 94 08/12/20 19:42 08/12/20 19:42 08/12/20 20:07 08/12/20 20:07 08/12/20 20:22
--- NOTE | 2020-08-12 20:57 | RADIOLOGY REPORT (SQ) ---
EXAM DESCRIPTION: XR CHEST 1 VIEW COMPLETED DATE/TME: 08/12/2020 20:13 CLINICAL HISTORY: 49 years, Female, SOB COMPARISON: Chest x-ray 01/30/2017. CT chest 08/05/2018. TECHNIQUE: Upright portable chest x-ray FINDINGS: S-shaped scoliosis. Mild cardiomegaly. No suspicious mediastinal widening. Severe chronic lung disease with emphysema and interstitial abnormalities better appreciated on CT from 2018. Difficult to determine if the current interstitial abnormalities are all chronic or there is a superimposed acute process. Consider CT if clinically suspicious for pneumonia.
[2020-08-12 21:09] LABS: ABSOLUTE LYMPHOCYTES (AUTO) 1.1 10^3/uL (0.5-4.7); ABSOLUTE MONOCYTES (AUTO) 1.2 10^3/uL (0.1-1.4); BASOPHILS % (AUTO) 0.2 % (0-2); EOSINOPHILS % (AUTO) 0.1 % (0-6); HEMATOCRIT 39.3 % (36.0-47.0); HEMOGLOBIN 13.5 g/dL (12.0-15.5); LYMPHOCYTES % (AUTO) 7.4 % (13-45); MEAN CORPUSCULAR HEMOGLOBIN 30.8 pg (27.0-33.4); MEAN CORPUSCULAR HGB CONC 34.3 g/dL (32.0-36.0); MEAN CORPUSCULAR VOLUME 90 fl (80-97); MONOCYTES % (AUTO) 7.9 % (3-13); PLATELET COUNT 503 10^3/uL (150-450); RED BLOOD COUNT 4.38 10^6/uL (3.72-5.28); RED CELL DISTRIBUTION WIDTH 13.9 % (11.5-14.0); SEGMENTED NEUTROPHILS % (AUTO) 84.4 % (42-78); TOTAL CELLS COUNTED % (AUTO) 100 %; WHITE BLOOD COUNT 15.4 10^3/uL (4.0-10.5)
[2020-08-12 21:18] LABS: ALBUMIN 3.7 g/dL (3.5-5.0); ALKALINE PHOSPHATASE 118 U/L (38-126); ANION GAP 11 (5-19); ASPARTATE AMINO TRANSFERASE 15 U/L (14-36); BILIRUBIN,DIRECT 0.4 mg/dL (0.0-0.4); BILIRUBIN,TOTAL 0.4 mg/dL (0.2-1.3); BLOOD UREA NITROGEN 6 mg/dL (7-20); CALCIUM 9.5 mg/dL (8.4-10.2); CARBON DIOXIDE 31 mmol/L (22-30); CHLORIDE 97 mmol/L (98-107); GLUCOSE 114 mg/dL (75-110); POTASSIUM 3.6 mmol/L (3.6-5.0); TOTAL PROTEIN 7.4 g/dL (6.3-8.2)
[2020-08-12] MEDS ORDERED: NORMAL SALINE 1000 ML 1,000 ML IV ONE (21:47)
[2020-08-12 21:51] LABS: ARTERIAL BLOOD BASE EXCESS 6.4 mmol/L; ARTERIAL BLOOD H2CO3 1.69 mmol/L (1.05-1.35); ARTERIAL BLOOD HCO3 33.2 mmol/L (20-24); ARTERIAL BLOOD O2 SATURATION 85.6 % (94-98); ARTERIAL BLOOD PCO2 56.1 mmHg (35-45); ARTERIAL BLOOD PH 7.39 (7.35-7.45); ARTERIAL BLOOD PO2 51.7 mmHg (80-100); ARTERIAL BLOOD TOTAL CO2 34.9 mmol/L (21-25)
[2020-08-12 22:00] LABS: ARTERIAL BLOOD FIO2 4L
--- NOTE | 2020-08-12 22:24 | ER Document Report ---
ED Respiratory Problem - General Chief Complaint: Shortness Of Breath Stated Complaint: SHORTNESS OF BREATH, COUGH Time Seen by Provider: 08/12/20 19:36 Primary Care Provider: LENCHO SALAMANCA DO [Primary Care Provider] - Follow up as needed TRAVEL OUTSIDE OF THE [place] IN LAST 30 DAYS: No - HPI Patient complains to provider of: Short of breath Onset: Last week Notes: Patient is a 49-year-old female with a past medical history of COPD who presents with shortness of breath. Patient states she has had shortness of breath and a dry cough for about 1 week. She also has nasal congestion. She denies fevers or chills. She denies any positive COVID exposure. Patient has no nausea or vomiting. No pleuritic pain. No leg swelling. She has no risk factors for PE. Patient does not wear oxygen at home. She is a former smoker and quit 2 months ago. Nasal cannula was placed on her in triage as she had low O2 saturations in the 70s. - Related Data Allergies/Adverse Reactions: ibuprofen [From Motrin] Allergy (Severe, Verified 01/31/17 02:27) Swelling of Throat Past Medical History - General Information source: Patient - Social History Smoking Status: Former Smoker Chew tobacco use (# tins/day): No Drug Abuse: None Family History: Reviewed & Not Pertinent - Past Medical History Cardiac Medical History: Denies: Hx Coronary Artery Disease, Hx Heart Attack, Hx Hypertension Pulmonary Medical History: Reports: Hx Asthma, Hx Bronchitis, Hx COPD, Hx Pneumonia Denies: Hx Tuberculosis Neurological Medical History: Denies: Hx Cerebrovascular Accident, Hx Seizures Renal/ Medical History: Denies: Hx Peritoneal Dialysis Musculoskeletal Medical History: Denies Hx Arthritis Psychiatric Medical History: Reports: Hx Depression Past Surgical History: Denies: Hx Pacemaker - Immunizations Immunizations up to date: Yes Hx Diphtheria, Pertussis, Tetanus Vaccination: Yes Hx Pneumococcal Vaccination: 10/08/12 Review of Systems - Review of Systems Notes: CONSTITUTIONAL: No fever, fatigue or weight loss. SKIN: No rash. HENT: No ear pain, or sore throat. Positive for nasal drainage. EYES: No recent vision problems or eye pain. ENDOCRINE: No polyuria or polydipsia. CARDIOVASCULAR: No chest pain or edema. RESPIRATORY: Positive for cough and shortness of breath. GASTROINTESTINAL: No abdominal pain, nausea, vomiting, bloody stools or diarr hea. GENITOURINARY: No dysuria. MUSCULOSKELETAL: No joint pain or swelling. LYMPHATIC: No swollen glands. NEUROLOGIC: No seizures. No headache, focal weakness or sensory changes. HEMATOLOGIC: No unusual bruising or bleeding. PSYCHIATRIC: No depression or anxiety. Physical Exam - Vital signs Vitals: Temp Pulse Resp BP Pulse Ox 98.7 F 56 L 16 145/74 H 72 L 08/12/20 19:42 08/12/20 19:42 08/12/20 19:42 08/12/20 19:42 08/12/20 19:42 Interpretation: Normal - Notes Notes: VITAL SIGNS: Hypoxic on room air. GENERAL: No acute distress, non-toxic appearance. HEAD: Normal with no signs of head trauma. EYES: Conjunctiva normal, no discharge. EARS: Hearing grossly intact. NOSE: Normal. NECK: Normal range of motion, no tenderness, supple, no lymphadenopathy, No adenopathy, no JVD. CHEST: Coarse lung sounds bilaterally. CARDIAC: Regular rate and rhythm. S1 and S2, without murmurs, gallops, or rubs. VASCULAR: No Edema. ABDOMEN: Normal and soft with no tenderness, no masses or pulsatile masses. GENITOURINARY: Normal, No tenderness LYMPATHTIC: No lymphadenopathy noted. MUSCULOSKELETAL: Good range of motion of all major joints. Extremities without clubbing, cyanosis or edema. NEUROLOGICAL: Alert and oriented x 3. No focal sensory or strength deficits. Speech normal. Follows commands appropriately. PSYCHIATRIC: Normal Affect, judgement and mood. SKIN: Normal appearance with no rashes or lesions. Course - Re-evaluation Re-evalutation: 08/12/20 22:37 Patient is currently on 5 L nasal cannula. She was 88% on 4 L. She denies any sick exposure. Chest x-ray is difficult to interpret due to chronic lung scarring and CT was recommended by radiology to rule out infection. She was given nebulizers and Solu-Medrol from triage. The rest of her work-up is pending, but she will need to be admitted for acute respiratory failure as she does not normally wear oxygen. Patient's CT is concerning for patchy consolidation and infection. She was given Rocephin and azithromycin. I did not order sepsis fluids as I am concerned for COVID pneumonia and did not want to fluid overload her with her lung findings. She received 1 liter of fluids. Patient was tested for influenza and COVID. Influenza is negative and COVID is pending. I discussed with the hospitalist for admission. Patient updated on the plan and is in agreement. 08/13/20 01:45 - Vital Signs Vital signs: Temp Pulse Resp BP Pulse Ox 98.6 F 56 L 17 140/72 H 92 08/12/20 21:00 08/12/20 19:42 08/12/20 23:10 08/12/20 23:10 08/12/20 23:10 - Laboratory Result Diagrams: 08/12/20 20:45 08/12/20 20:45 Laboratory results interpreted by me: 08/12/20 08/12/20 08/12/20 20:45 20:45 20:45 WBC 15.4 H Plt Count 503 H Lymph % (Auto) 7.4 L Absolute Neuts (auto) 13.0 H Seg Neutrophils % 84.4 H Carbonic Acid ABG pCO2 ABG pO2 ABG HCO3 ABG Total CO2 ABG O2 Saturation Chloride 97 L Carbon Dioxide 31 H BUN 6 L Creatinine 0.34 L Glucose 114 H Lactic Acid C-Reactive Protein 152.9 H Urine Protein Urine Ketones Urine Blood Urine Urobilinogen 08/12/20 08/13/20 08/13/20 21:41 00:13 00:13 WBC Plt Count Lymph % (Auto) Absolute Neuts (auto) Seg Neutrophils % Carbonic Acid 1.69 H ABG pCO2 56.1 H ABG pO2 51.7 L ABG HCO3 33.2 H ABG Total CO2 34.9 H ABG O2 Saturation 85.6 L Chloride Carbon Dioxide BUN Creatinine Glucose Lactic Acid 0.6 L C-Reactive Protein Urine Protein 100 H Urine Ketones 20 H Urine Blood MODERATE H Urine Urobilinogen 4.0 H - EKG Interpretation by Me EKG shows normal: Sinus rhythm Rate: Tachycardia When compared to previous EKG there are: No significant change Additional EKG results interpreted by me: 08/12/20 22:39 EKG interpreted by me. Sinus tachycardia at a rate of 100. QTc 418. No acute ST changes. EKG is similar to previous. Discharge - Discharge Clinical Impression: Suspected COVID-19 virus infection Acute respiratory failure Qualifiers: Respiratory failure complication: hypoxia and hypercapnia Qualified Code(s): J96.01 - Acute respiratory failure with hypoxia Pneumonia Qualifiers: Pneumonia type: due to unspecified organism Laterality: right Lung location: unspecified part of lung Qualified Code(s): J18.9 - Pneumonia, unspecified organism Condition: Serious Disposition: ADMITTED INPATIENT Admitting Provider: Dev (Hospitalist) Unit Admitted: [facility] Referrals: LENCHO SALAMANCA DO [Primary Care Provider] - Follow up as needed
--- NOTE | 2020-08-12 22:51 | RADIOLOGY REPORT (SQ) ---
CLINICAL INDICATION: respiratory failure. . TECHNIQUE: Noncontrast spiral axial CT imaging was obtained of the chest with multiplanar reconstructions. This exam was performed according to our departmental dose-optimization program, which includes automated exposure control, adjustment of the mA and/or kV according to patient size and/or use of iterative reconstruction techniques. COMPARISON: August 05, 2018, contrast-enhanced. CORRELATION: None. FINDINGS: The heart is stable with coronary calcification.. No pericardial effusion. No bulky mediastinal adenopathy. The lungs again demonstrate chronic emphysematous changes, bilaterally. Subpleural bleb formation. There is superimposed patchy areas of airspace disease most prominent right middle lobe and right upper lobe. Similar patchy areas right lower lobe. Bronchiectatic changes are also seen. No significant pleural fluid. No pneumothorax.. Visualized abdominal contents are unremarkable. Aortic calcification Visualized bones demonstrate scoliosis. Osteoarthritis.. IMPRESSION: Patchy areas of airspace consolidative change on a background of significant emphysematous change. Presumably, these findings are infectious inflammatory..
[2020-08-12] MEDS ORDERED: CEFTRIAXONE 1 GM/D5W RTU 1 GM/50 ML RTUPB IV ONE (23:02)
[2020-08-12] MEDS ORDERED: AZITHROMYCIN INJ 500 MG VIAL IV ONE (23:02)
[2020-08-13 00:10] LABS: C-REACTIVE PROTEIN 152.9 mg/L (<10.0)
[2020-08-13 00:29] LABS: FERRITIN 32.4 ng/mL (6.2-137.0)
--- NOTE | 2020-08-13 00:52 | EKG REPORT ---
SEVERITY:- ABNORMAL ECG - SINUS TACHYCARDIA PROBABLE LEFT ATRIAL ABNORMALITY LEFT VENTRICULAR HYPERTROPHY INFERIOR INFARCT, AGE INDETERMINATE : Confirmed by: Rupinder Montero MD 13-Aug-2020 00:52:13
[2020-08-13 01:13] LABS: A TYPE INFLUENZA AG NEGATIVE (NEGATIVE); APPEARANCE,URINE CLOUDY; B INFLUENZA AG NEGATIVE (NEGATIVE); BILIRUBIN,URINE NEGATIVE (NEGATIVE); COLOR,URINE AMBER; GLUCOSE, URINE NEGATIVE (NEGATIVE); KETONES,URINE 20 mg/dL (NEGATIVE); LEUKOCYTE ESTERASE,URINE NEGATIVE (NEGATIVE); NITRITE,URINE NEGATIVE (NEGATIVE); PROTEIN,URINE 100 mg/dL (NEGATIVE); URINE SPECIFIC GRAVITY 1.024
[2020-08-13] MEDS ORDERED: GUAIFENESIN SYRP 200 MG/10 ML UDC PO PRN (02:22)
[2020-08-13] MEDS ORDERED: ACETAMINOPHEN 325 MG TABLET PO PRN (02:22)
[2020-08-13] MEDS ORDERED: ALBUTEROL SULFATE HFA (90 MCG/PUFF) 8 GM MDI IH PRN (02:22)
[2020-08-13] MEDS ORDERED: PHARMACY COMMUNICATION ORDER MC NR (02:30)
--- NOTE | 2020-08-13 04:37 | PDOC H&P ---
History of Present Illness Admission Date/PCP: 08/13/20 01:50 LENCHO SALAMANCA DO Patient complains of: Shortness of breath History of Present Illness: GIOVANNI CÁRDENAS is a 49 year old female with a history of COPD presents with worsening shortness of breath and cough for the past 1 to 2 weeks. Patient states that she has a chronic longstanding cough which she describes as 'smoker's cough' but over the past week it has gotten worse and has become more productive of clear sputum but denies any history of hemoptysis. Associated with this she also reports progressively worsening shortness of breath. Shortness of breath was initially exertional but it got worse to a level where she was symptomatic at rest. Patient was previously on 2 L home oxygen but she states that she was not able to follow-up with her primary care doctor and has not been able to get replacement for the past few years. Per previous admission notes patient is known to be non compliant with her medications. She also states that she has been out of her COPD medication(combivent) for few months. She denies any fever, chills, night sweating, body aches, runny nose or any recent travel. She also denies any recent history of contact with sick patient. She reports that she quit smoking 3 weeks back after she started having worsening in her shortness of breath. She states that she has a good appetite, has no nausea of vomiting and has not noticed any change in her weight recently. Past Medical History Cardiac Medical History: Denies: Coronary Artery Disease, Myocardial Infarction, Hypertension Pulmonary Medical History: Reports: Asthma, Bronchitis, Chronic Obstructive Pulmonary Disease (COPD), Pneumonia Denies: Tuberculosis Neurological Medical History: Denies: Seizures Endocrine Medical History: Reports: None Musculoskeltal Medical History: Denies: Arthritis Psychiatric Medical History: Reports: Depression Hematology: Denies: Anemia Past Surgical History Past Surgical History: Denies: Pacemaker Social History Information Source: Patient Lives with: Family Smoking Status: Former Smoker Electronic Cigarette use?: No Number of Years Smokin Last Time Smoked: 3 weeks Frequency of Alcohol Use: None Hx Recreational Drug Use: No Drugs: None Hx Prescription Drug Abuse: No - Advance Directive Resuscitation Status: Full Code Family History Family History: Reviewed & Not Pertinent Parental Family History Reviewed: Yes Children Family History Reviewed: Yes Sibling(s) Family History Reviewed.: Yes Medication/Allergy Home Medications: Albuterol Sulfate [Proair HFA Inhalation Aerosol 8.5 gm MDI] 2 puff IH Q4 01/31/17 Fluticasone Propionate [Flonase Nasal [place] 50 Mcg/[place] 16 gm] 1 spray NASL DAILY 01/31/17 Ipratropium/Albuterol Sulfate [Combivent Respimat Inhal [place]] 1 puff IH QID 01/31/17 Ipratropium/Albuterol Sulfate [Duoneb 3 ml Ampul] 3 ml NEB RTDAILY 01/31/17 Montelukast Sodium [Singulair 10 mg Tablet] 10 mg PO QPM 01/31/17 Allergies/Adverse Reactions: ibuprofen [From Motrin] Allergy (Severe, Verified 01/31/17 02:27) Swelling of Throat Review of Systems Constitutional: ABSENT: chills, fever(s), headache(s), weight gain, weight loss Eyes: ABSENT: visual disturbances Ears: ABSENT: hearing changes Cardiovascular: PRESENT: dyspnea on exertion. ABSENT: chest pain, edema, orthropnea, palpitations Respiratory: PRESENT: cough, dyspnea, sputum Gastrointestinal: ABSENT: abdominal pain, constipation, diarrhea, hematemesis, hematochezia, nausea, vomiting Genitourinary: ABSENT: dysuria, hematuria Integumentary: ABSENT: rash, wounds Neurological: ABSENT: abnormal speech, confusion, focal weakness, syncope Endocrine: ABSENT: cold intolerance, heat intolerance, polydipsia, polyuria Hematologic/Lymphatic: ABSENT: easy bleeding, easy bruising Physical Exam Vital Signs: Temp Pulse Resp BP Pulse Ox 98.6 F 56 L 14 137/76 H 92 08/12/20 21:00 08/12/20 19:42 08/13/20 02:03 08/13/20 02:03 08/13/20 02:03 Intake & Output 08/11/20 08/12/20 08/13/20 06:59 06:59 06:59 Intake Total 1050 Balance 1050 Weight 52.163 kg Patient in mild respiratory distress, on 5 L/min intranasal oxygen. Saturating between 89 to 92% during exam General appearance: PRESENT: cooperative, mild distress Head exam: PRESENT: atraumatic, normocephalic Eye exam: PRESENT: conjunctiva pink, EOMI, PERRLA. ABSENT: scleral icterus Neck exam: ABSENT: carotid bruit, JVD, lymphadenopathy, thyromegaly Respiratory exam: PRESENT: crackles, prolonged expiratory phas, wheezes Cardiovascular exam: PRESENT: RRR. ABSENT: diastolic murmur, rubs, systolic murmur GI/Abdominal exam: PRESENT: normal bowel sounds, soft. ABSENT: distended, guarding, mass, organolmegaly, rebound, tenderness Rectal exam: PRESENT: deferred Gentrourinary exam: ABSENT: indwelling catheter Extremities exam: PRESENT: full ROM. ABSENT: calf tenderness, clubbing, pedal edema Musculoskeletal exam: PRESENT: deformity - Has scoliosis deformity of thoracic vertebra Neurological exam: PRESENT: alert, awake, oriented to person, oriented to place, oriented to time, oriented to situation, CN II-XII grossly intact. ABSENT: motor sensory deficit Psychiatric exam: PRESENT: appropriate affect, normal mood. ABSENT: agitated, anxious Skin exam: PRESENT: dry, intact, warm. ABSENT: cyanosis, rash Results Laboratory Results: 08/12/20 20:45 08/12/20 20:45 08/12/20 08/12/20 08/12/20 20:45 20:45 20:45 WBC 15.4 H RBC 4.38 Hgb 13.5 Hct 39.3 MCV 90 MCH 30.8 MCHC 34.3 RDW 13.9 Plt Count 503 H Seg Neutrophils % 84.4 H Carbonic Acid HCO3/H2CO3 Ratio ABG pH ABG pCO2 ABG pO2 ABG HCO3 ABG O2 Saturation ABG Base Excess FiO2 Sodium 139.0 Potassium 3.6 Chloride 97 L Carbon Dioxide 31 H Anion Gap 11 BUN 6 L Creatinine 0.34 L Est GFR ( Amer) > 60 Glucose 114 H Lactic Acid Calcium 9.5 Ferritin 32.40 Total Bilirubin 0.4 AST 15 Alkaline Phosphatase 118 C-Reactive Protein 152.9 H Total Protein 7.4 Albumin 3.7 Urine Color Urine Appearance Urine pH Ur Specific [place] Urine Protein Urine Glucose (UA) Urine Ketones Urine Blood Urine Nitrite Ur Leukocyte Esterase Urine WBC (Auto) Urine RBC (Auto) 08/12/20 08/13/20 08/13/20 21:41 00:13 00:13 WBC RBC Hgb Hct MCV MCH MCHC RDW Plt Count Seg Neutrophils % Carbonic Acid 1.69 H HCO3/H2CO3 Ratio 19:1 ABG pH 7.39 ABG pCO2 56.1 H ABG pO2 51.7 L ABG HCO3 33.2 H ABG O2 Saturation 85.6 L ABG Base Excess 6.4 FiO2 4L Sodium Potassium Chloride Carbon Dioxide Anion Gap BUN Creatinine Est GFR ( Amer) Glucose Lactic Acid 0.6 L Calcium Ferritin Total Bilirubin AST Alkaline Phosphatase C-Reactive Protein Total Protein Albumin Urine Color MARIE Urine Appearance CLOUDY Urine pH 6.0 Ur Specific [place] 1.024 Urine Protein 100 H Urine Glucose (UA) NEGATIVE Urine Ketones 20 H Urine Blood MODERATE H Urine Nitrite NEGATIVE Ur Leukocyte Esterase NEGATIVE Urine WBC (Auto) 6 Urine RBC (Auto) 18 08/12/20 20:45 Troponin I 0.013 Impressions: Chest CT 08/12/20 21:52 IMPRESSION: Patchy areas of airspace consolidative change on a background of significant emphysematous change. Presumably, these findings are infectious inflammatory.. Assessment and Plan - Diagnosis (1) Acute respiratory failure Qualifiers: Respiratory failure complication: hypoxia and hypercapnia Qualified Code(s): J96.01 - Acute respiratory failure with hypoxia; J96.02 - Acute respiratory failure with hypercapnia Is this a current diagnosis for this admission?: Yes Plan: Patient presents with 1 week duration of worsening shortness of breath Has a history of COPD and was previously on home oxygen. Patient had run out of her Combivent for past few months Likely precipitated by COPD exacerbation/pneumonia vs COVID-19 ABG pH/PCO2/PO2: 7.39/56/51.7 on 4 L intranasal oxygen Patient currently on 5 L intranasal oxygen to be titrated for saturation between 88 to 92% Albuterol inhaler every 4 hourly as needed Started on ceftriaxone and azithromycin Continue dexamethasone, vitamin C, zinc, vitamin D Home oxygen evaluation before discharge Follow-up with COVID-19 test result (2) Pneumonia Qualifiers: Pneumonia type: due to unspecified organism Laterality: right Lung location: unspecified part of lung Qualified Code(s): J18.9 - Pneumonia, unspecified organism Is this a current diagnosis for this admission?: Yes Plan: Patient presents with cough and worsening shortness of breath Chest CT showed patchy areas of airspace consolidative changes prominently on the right middle and upper lobes Has leukocytosis with left shift Placed on ceftriaxone and azithromycin Follow-up with COVID-19, sputum Gram stain and culture results (3) Suspected COVID-19 virus infection Is this a current diagnosis for this admission?: Yes Plan: Patient presents with shortness of breath and cough Symptoms may overlap with COPD exacerbation C-reactive protein elevated, normal ferritin and LDH Continue special airborne isolation Continue ceftriaxone, azithromycin, dexamethasone, zinc, vitamin C, vitamin D (4) Acute exacerbation of chronic obstructive pulmonary disease (COPD) Is this a current diagnosis for this admission?: Yes Plan: Patient reports a history of COPD Was previously on home oxygen but was not able to follow-up with PCP Has also been out of her medication Continue intranasal oxygen and titrate for saturation of 88 to 92% Continue antibiotics, steroids and albuterol inhaler Consider home oxygen evaluation before discharge (5) Hypoxemia requiring supplemental oxygen Is this a current diagnosis for this admission?: Yes Plan: Patient presents with shortness of breath ABG showed PO2 of 51% on 4 L internal oxygen Likely due to COPD exacerbation precipitated by pneumonia Continue management as above (6) Idiopathic scoliosis and kyphoscoliosis Is this a current diagnosis for this admission?: Yes (7) Tobacco abuse Is this a current diagnosis for this admission?: No Plan: Patient reports that she quit smoking 3 weeks back (8) Reactive thrombocytosis Is this a current diagnosis for this admission?: Yes (9) Leukocytosis Is this a current diagnosis for this admission?: Yes - Time Time Spent with patient: 35 or more minutes Total Critical Time (Minutes): 45 Medications reviewed and adjusted accordingly: Yes Anticipated Discharge Disposition: Home, Self Care Anticipated Discharge Timeframe: within 72 hours - Inpatient Certification Based on my medical assessment, after consideration of the patient's comorbidities, presenting symptoms, or acuity I expect that the services needed warrant INPATIENT care.: Yes I certify that my determination is in accordance with my understanding of Medicare's requirements for reasonable and necessary INPATIENT services [42 CFR 412.3e].: Yes Medical Necessity: Need Close Monitoring Due to Risk of Patient Decompensation, Need For Continuous Telemetry Monitoring, Need for Pain Control, Need for IV Antibiotics, Risk of Complication if Not Cared For in Hospital Post Hospital Care: D/C or Transfer Summary
[2020-08-13 07:56] LABS: HEMOGLOBIN 13.1 g/dL (12.0-15.5); MEAN CORPUSCULAR HGB CONC 34.5 g/dL (32.0-36.0); MEAN CORPUSCULAR VOLUME 90 fl (80-97); PLATELET COUNT 417 10^3/uL (150-450); RED BLOOD COUNT 4.23 10^6/uL (3.72-5.28); RED CELL DISTRIBUTION WIDTH 13.9 % (11.5-14.0); WHITE BLOOD COUNT 11.1 10^3/uL (4.0-10.5)
[2020-08-13 08:34] LABS: ALBUMIN 3.4 g/dL (3.5-5.0); ALKALINE PHOSPHATASE 106 U/L (38-126); ANION GAP 12 (5-19); ASPARTATE AMINO TRANSFERASE 17 U/L (14-36); BILIRUBIN,DIRECT 0.3 mg/dL (0.0-0.4); BILIRUBIN,TOTAL 0.3 mg/dL (0.2-1.3); BLOOD UREA NITROGEN 6 mg/dL (7-20); CALCIUM 9.2 mg/dL (8.4-10.2); CARBON DIOXIDE 28 mmol/L (22-30); CHLORIDE 99 mmol/L (98-107); GLUCOSE 131 mg/dL (75-110)
[2020-08-13 08:37] LABS: POTASSIUM 4.6 mmol/L (3.6-5.0)
[2020-08-13 08:41] LABS: ABSOLUTE LYMPHOCYTES# (MANUAL) 0.4 10^3/uL (0.5-4.7); BASOPHILS % (MANUAL) 0 % (0-2); EOSINOPHILS % (MANUAL) 0 % (0-6); LYMPHOCYTES % (MANUAL) 4 % (13-45); MONOCYTES % (MANUAL) 0 % (3-13); SEGMENTED NEUTROPHILS % (MAN) 96 % (42-78); TOTAL CELLS COUNTED 100
[2020-08-13 08:42] LABS: PLATELET COMMENT ADEQUATE; RBC MORPHOLOGY COMMENT NORMO-CYTIC/CHROMIC
--- NOTE | 2020-08-13 09:22 | PDOC PROGRESS REPORT ---
Subjective Progress Note for:: 08/13/20 Subjective:: 49 year old female with a history of COPD presents with worsening shortness of breath and cough for the past 1 to 2 weeks. Patient states that she has a chronic longstanding cough which she describes as 'smoker's cough' but over the past week it has gotten worse and has become more productive of clear sputum but denies any history of hemoptysis. Associated with this she also reports progressively worsening shortness of breath. Shortness of breath was initially exertional but it got worse to a level where she was symptomatic at rest. Patient was previously on 2 L home oxygen but she states that she was not able to follow-up with her primary care doctor and has not been able to get replacement for the past few years. Per previous admission notes patient is known to be non compliant with her medications. She also states that she has been out of her COPD medication(combivent) for few months. She denies any fever, chills, night sweating, body aches, runny nose or any recent travel. She also denies any recent history of contact with sick patient. She reports that she quit smoking 3 weeks back after she started having worsening in her shortness of breath. She states that she has a good appetite, has no nausea of vomiting and has not noticed any change in her weight recently. 08/23/[id number]-[id number]-old female with history of COPD not on home oxygen ex-smoker came to the emergency room with complaints of shortness of breath and cough. Denies any fever. CT scan of the chest suggestive of airspace opacities. Pulse ox is 90% on 6 L of oxygen this morning. Comfortably in the bed communicating well. Plan is to continue IV Zithromax and ceftriaxone at this time. COVID-19 is pending. Reason For Visit: PNEUMONIA Physical Exam Vital Signs: Temp Pulse Resp BP Pulse Ox 97.5 F 89 20 120/70 90 L 08/13/20 07:37 08/13/20 07:37 08/13/20 07:37 08/13/20 07:37 08/13/20 09:07 Pulse Oximeter Continuous Start: 08/13/20 02:23 Freq: RTQ4 Status: Active Protocol: Document 08/13/20 09:07 [facility] (Rec: 08/13/20 09:07 [facility] [id number]) Pulse Oximetry Assessment Oxygen Saturation (92-100) 90 Oxygen Flow Rate (L/min) 6 Oxygen Delivery Method Nasal Cannula Equipment Usage Equipment Standby Continuous SpO2 Machine # - Intake & Output 08/12/20 08/13/20 08/14/20 06:59 06:59 06:59 Intake Total 1050 Balance 1050 Weight 52.16 kg General appearance: PRESENT: no acute distress, cooperative, thin Head exam: PRESENT: atraumatic Eye exam: PRESENT: PERRLA Mouth exam: PRESENT: moist, tongue midline Teeth exam: PRESENT: poor dentation Neck exam: ABSENT: carotid bruit, JVD, lymphadenopathy, thyromegaly Respiratory exam: PRESENT: decreased breath sounds, wheezes Cardiovascular exam: PRESENT: RRR. ABSENT: diastolic murmur, rubs, systolic murmur GI/Abdominal exam: PRESENT: normal bowel sounds, soft. ABSENT: distended, guarding, mass, organolmegaly, rebound, tenderness Rectal exam: PRESENT: deferred Extremities exam: PRESENT: full ROM. ABSENT: calf tenderness, clubbing, pedal edema Neurological exam: PRESENT: alert, awake, oriented to person, oriented to place, oriented to time, oriented to situation, CN II-XII grossly intact. ABSENT: motor sensory deficit Skin exam: PRESENT: dry, intact, warm. ABSENT: cyanosis, rash Results Laboratory Results: 08/13/20 07:15 08/13/20 07:15 08/12/20 08/12/20 08/12/20 20:45 20:45 20:45 WBC 15.4 H RBC 4.38 Hgb 13.5 Hct 39.3 MCV 90 MCH 30.8 MCHC 34.3 RDW 13.9 Plt Count 503 H Seg Neutrophils % 84.4 H Carbonic Acid HCO3/H2CO3 Ratio ABG pH ABG pCO2 ABG pO2 ABG HCO3 ABG O2 Saturation ABG Base Excess FiO2 Sodium 139.0 Potassium 3.6 Chloride 97 L Carbon Dioxide 31 H Anion Gap 11 BUN 6 L Creatinine 0.34 L Est GFR ( Amer) > 60 Glucose 114 H Lactic Acid Calcium 9.5 Magnesium Ferritin 32.40 Total Bilirubin 0.4 AST 15 Alkaline Phosphatase 118 C-Reactive Protein 152.9 H Total Protein 7.4 Albumin 3.7 Urine Color Urine Appearance Urine pH Ur Specific [place] Urine Protein Urine Glucose (UA) Urine Ketones Urine Blood Urine Nitrite Ur Leukocyte Esterase Urine WBC (Auto) Urine RBC (Auto) 08/12/20 08/13/20 08/13/20 21:41 00:13 00:13 WBC RBC Hgb Hct MCV MCH MCHC RDW Plt Count Seg Neutrophils % Carbonic Acid 1.69 H HCO3/H2CO3 Ratio 19:1 ABG pH 7.39 ABG pCO2 56.1 H ABG pO2 51.7 L ABG HCO3 33.2 H ABG O2 Saturation 85.6 L ABG Base Excess 6.4 FiO2 4L Sodium Potassium Chloride Carbon Dioxide Anion Gap BUN Creatinine Est GFR ( Amer) Glucose Lactic Acid 0.6 L Calcium Magnesium Ferritin Total Bilirubin AST Alkaline Phosphatase C-Reactive Protein Total Protein Albumin Urine Color MARIE Urine Appearance CLOUDY Urine pH 6.0 Ur Specific [place] 1.024 Urine Protein 100 H Urine Glucose (UA) NEGATIVE Urine Ketones 20 H Urine Blood MODERATE H Urine Nitrite NEGATIVE Ur Leukocyte Esterase NEGATIVE Urine WBC (Auto) 6 Urine RBC (Auto) 18 08/13/20 08/13/20 07:15 07:15 WBC 11.1 H RBC 4.23 Hgb 13.1 Hct 38.0 MCV 90 MCH 31.0 MCHC 34.5 RDW 13.9 Plt Count 417 Seg Neutrophils % Not Reportable Carbonic Acid HCO3/H2CO3 Ratio ABG pH ABG pCO2 ABG pO2 ABG HCO3 ABG O2 Saturation ABG Base Excess FiO2 Sodium 138.9 Potassium 4.6 D Chloride 99 Carbon Dioxide 28 Anion Gap 12 BUN 6 L Creatinine 0.34 L Est GFR ( Amer) > 60 Glucose 131 H Lactic Acid Calcium 9.2 Magnesium 2.0 Ferritin Total Bilirubin 0.3 AST 17 Alkaline Phosphatase 106 C-Reactive Protein Total Protein 7.0 Albumin 3.4 L Urine Color Urine Appearance Urine pH Ur Specific [place] Urine Protein Urine Glucose (UA) Urine Ketones Urine Blood Urine Nitrite Ur Leukocyte Esterase Urine WBC (Auto) Urine RBC (Auto) 08/12/20 08/13/20 20:45 02:00 Troponin I 0.013 < 0.012 Impressions: Chest CT 08/12/20 21:52 IMPRESSION: Patchy areas of airspace consolidative change on a background of significant emphysematous change. Presumably, these findings are infectious inflammatory.. Assessment and Plan - Diagnosis (1) Acute respiratory failure Qualifiers: Respiratory failure complication: hypoxia and hypercapnia Qualified Code(s): J96.01 - Acute respiratory failure with hypoxia; J96.02 - Acute respiratory failure with hypercapnia Is this a current diagnosis for this admission?: Yes Plan: Patient presents with 1 week duration of worsening shortness of breath Has a history of COPD and was previously on home oxygen. Patient had run out of her Combivent for past few months Likely precipitated by COPD exacerbation/pneumonia vs COVID-19 ABG pH/PCO2/PO2: 7.39/56/51.7 on 4 L intranasal oxygen Patient currently on 5 L intranasal oxygen to be titrated for saturation between 88 to 92% Albuterol inhaler every 4 hourly as needed Started on ceftriaxone and azithromycin Continue dexamethasone, vitamin C, zinc, vitamin D Home oxygen evaluation before discharge Follow-up with COVID-19 test result 08/13/[id number]-pdcm-old female admitted with acute respiratory failure most likely secondary to bilateral pneumonia presently on Rocephin and Zithromax COVID-19 is pending. Pulse ox is 90% on 6 L. To continue dexamethasone, vitamin C, zinc, vitamin D. Receiving albuterol inhaler every 4 hours as needed. (2) Pneumonia Qualifiers: Pneumonia type: due to unspecified organism Laterality: right Lung location: unspecified part of lung Qualified Code(s): J18.9 - Pneumonia, unspecified organism Is this a current diagnosis for this admission?: Yes Plan: Patient presents with cough and worsening shortness of breath Chest CT showed patchy areas of airspace consolidative changes prominently on the right middle and upper lobes Has leukocytosis with left shift Placed on ceftriaxone and azithromycin Follow-up with COVID-19, sputum Gram stain and culture results 08/13/2020-CT scan suggestive of bilateral pneumonia most likely community- acquired pneumonia on IV Rocephin, Zithromax. On admission WBC count is 15,400 improved to 11,100 today. Afebrile. On 6 L of oxygen with pulse ox is around 90%. Blood cultures are pending at this time. Sputum culture is pending. (3) Suspected COVID-19 virus infection Is this a current diagnosis for this admission?: Yes Plan: Patient presents with shortness of breath and cough Symptoms may overlap with COPD exacerbation C-reactive protein elevated, normal ferritin and LDH Continue special airborne isolation Continue ceftriaxone, azithromycin, dexamethasone, zinc, vitamin C, vitamin D 08/[id number] test is pending. Plan is to continue Zithromax, Rocephin, dexamethasone, zinc, vitamin C, vitamin D at this time. (4) Acute exacerbation of chronic obstructive pulmonary disease (COPD) Is this a current diagnosis for this admission?: Yes Plan: Patient reports a history of COPD Was previously on home oxygen but was not able to follow-up with PCP Has also been out of her medication Continue intranasal oxygen and titrate for saturation of 88 to 92% Continue antibiotics, steroids and albuterol inhaler Consider home oxygen evaluation before discharge 08/13/2020-patient admitted with COPD exacerbation. Pulse ox is 90% on 6 L. Plan is to continue the antibiotics continue steroids albuterol inhaler at this time. (5) Hypoxemia requiring supplemental oxygen Is this a current diagnosis for this admission?: Yes Plan: Patient presents with shortness of breath ABG showed PO2 of 51% on 4 L internal oxygen Likely due to COPD exacerbation precipitated by pneumonia Continue management as above (6) Tobacco abuse Is this a current diagnosis for this admission?: No Plan: Patient reports that she quit smoking 3 weeks back (7) Leukocytosis Is this a current diagnosis for this admission?: Yes - Time Anticipated Discharge Disposition: Home, Self Care Anticipated Discharge Timeframe: within 72 hours
[2020-08-13] MEDS: ENOXAPARIN SODIUM INJ 40 MG/0.4 ML DISP.SYRIN SUBCUT SCH (10:19)
[2020-08-13] MEDS: CHOLECALCIFEROL (D3) 1,000 UNIT (25 MCG) TABLET PO SCH (10:19)
[2020-08-13] MEDS: ASCORBIC ACID 500 MG TABLET PO SCH ×2 (10:19→17:00)
[2020-08-13] MEDS: ZINC SULFATE 220 MG CAPSULE PO SCH (10:19)
[2020-08-13] MEDS: DEXAMETHASONE SOD PHOS INJ 10 MG/1 ML VIAL IV SCH (10:21)
[2020-08-13] MEDS ORDERED: ALBUTEROL SULFATE HFA (90 MCG/PUFF) 8 GM MDI IH ONE (17:21)
[2020-08-13] MEDS: CEFTRIAXONE 1 GM/D5W RTU 1 GM/50 ML RTUPB IV SCH (21:38)
[2020-08-13] MEDS: MELATONIN 5 MG TABLET PO SCH (21:39)
[2020-08-13] MEDS: AZITHROMYCIN 500 MG in DEXTROSE 5%-WATER 250 ML IV SCH (21:40)
[2020-08-13] MEDS ORDERED: AZITHROMYCIN INJ 500 MG VIAL IV ONE (22:14)
[2020-08-14 06:58] LABS: ABSOLUTE LYMPHOCYTES (AUTO) 1.4 10^3/uL (0.5-4.7); ABSOLUTE MONOCYTES (AUTO) 0.8 10^3/uL (0.1-1.4); ABSOLUTE NEUT (AUTO) 8.5 10^3/uL (1.7-8.2); BASOPHILS % (AUTO) 0.3 % (0-2); HEMATOCRIT 35.8 % (36.0-47.0); HEMOGLOBIN 12.4 g/dL (12.0-15.5); LYMPHOCYTES % (AUTO) 13.1 % (13-45); MEAN CORPUSCULAR HEMOGLOBIN 31.2 pg (27.0-33.4); MEAN CORPUSCULAR HGB CONC 34.6 g/dL (32.0-36.0); MEAN CORPUSCULAR VOLUME 90 fl (80-97); MONOCYTES % (AUTO) 7.2 % (3-13); PLATELET COUNT 429 10^3/uL (150-450); RED BLOOD COUNT 3.97 10^6/uL (3.72-5.28); RED CELL DISTRIBUTION WIDTH 14.2 % (11.5-14.0); SEGMENTED NEUTROPHILS % (AUTO) 79.4 % (42-78); TOTAL CELLS COUNTED % (AUTO) 100 %; WHITE BLOOD COUNT 10.7 10^3/uL (4.0-10.5)
[2020-08-14 07:29] LABS: ALBUMIN 3.2 g/dL (3.5-5.0); ALKALINE PHOSPHATASE 89 U/L (38-126); ANION GAP 8 (5-19); ASPARTATE AMINO TRANSFERASE 16 U/L (14-36); BILIRUBIN,TOTAL 0.3 mg/dL (0.2-1.3); BLOOD UREA NITROGEN 12 mg/dL (7-20); CALCIUM 9.4 mg/dL (8.4-10.2); CARBON DIOXIDE 34 mmol/L (22-30); CHLORIDE 96 mmol/L (98-107); GLUCOSE 100 mg/dL (75-110)
[2020-08-14 07:30] LABS: BILIRUBIN,DIRECT 0.3 mg/dL (0.0-0.4); TOTAL PROTEIN 6.4 g/dL (6.3-8.2)
[2020-08-14] MEDS ORDERED: INFLUENZA QUAD (6MOS+) 2020-21 VAC 0.5 ML SYR IM ONE (08:00)
--- NOTE | 2020-08-14 08:29 | PDOC PROGRESS REPORT ---
Subjective Progress Note for:: 08/14/20 Subjective:: 49 year old female with a history of COPD presents with worsening shortness of breath and cough for the past 1 to 2 weeks. Patient states that she has a chronic longstanding cough which she describes as 'smoker's cough' but over the past week it has gotten worse and has become more productive of clear sputum but denies any history of hemoptysis. Associated with this she also reports progressively worsening shortness of breath. Shortness of breath was initially exertional but it got worse to a level where she was symptomatic at rest. Patient was previously on 2 L home oxygen but she states that she was not able to follow-up with her primary care doctor and has not been able to get replacement for the past few years. Per previous admission notes patient is known to be non compliant with her medications. She also states that she has been out of her COPD medication(combivent) for few months. She denies any fever, chills, night sweating, body aches, runny nose or any recent travel. She also denies any recent history of contact with sick patient. She reports that she quit smoking 3 weeks back after she started having worsening in her shortness of breath. She states that she has a good appetite, has no nausea of vomiting and has not noticed any change in her weight recently. 08/13/[id number]-aznz-old female with history of COPD not on home oxygen ex-smoker came to the emergency room with complaints of shortness of breath and cough. Denies any fever. CT scan of the chest suggestive of airspace opacities. Pulse ox is 90% on 6 L of oxygen this morning. Comfortably in the bed communicating well. Plan is to continue IV Zithromax and ceftriaxone at this time. COVID-19 is pending. 08/14/[id number]-gzby-old female with history of COPD, ex-smoker admitted with COPD exacerbation and acute on chronic respiratory failure. COVID-19 is pending. Complaining of cough requesting cough medications. Blood cultures are negative so far. Labs are within normal limits. Reason For Visit: PNEUMONIA Physical Exam Vital Signs: Temp Pulse Resp BP Pulse Ox 97.4 F 97 12 103/46 L 97 08/14/20 07:24 08/14/20 07:24 08/14/20 07:24 08/14/20 07:24 08/14/20 07:24 Pulse Oximeter Continuous Start: 08/13/20 02:23 Freq: RTQ4 Status: Active Protocol: Document 08/14/20 04:05 [facility] (Rec: 08/14/20 05:45 [facility] [id number]) Pulse Oximetry Assessment Oxygen Saturation (92-100) 98 Oxygen Flow Rate (L/min) 10 Oxygen Delivery Method Face Tent Fraction of Inspired Oxygen (FIO2) 70 Equipment Usage Equipment Standby Continuous SpO2 Machine # - Intake & Output 08/13/20 08/14/20 08/15/20 06:59 06:59 06:59 Intake Total 1050 1438 Balance 1050 1438 Weight 52.16 kg 52.2 kg General appearance: PRESENT: no acute distress, cooperative, thin Head exam: PRESENT: atraumatic Eye exam: PRESENT: PERRLA Ear exam: PRESENT: normal external ear exam Mouth exam: PRESENT: moist, tongue midline Neck exam: ABSENT: carotid bruit, JVD, lymphadenopathy, thyromegaly Respiratory exam: PRESENT: decreased breath sounds Cardiovascular exam: PRESENT: RRR. ABSENT: diastolic murmur, rubs, systolic murmur GI/Abdominal exam: PRESENT: normal bowel sounds, soft. ABSENT: distended, guarding, mass, organolmegaly, rebound, tenderness Rectal exam: PRESENT: deferred Extremities exam: PRESENT: full ROM. ABSENT: calf tenderness, clubbing, pedal edema Neurological exam: PRESENT: alert, awake, oriented to person, oriented to place, oriented to time, oriented to situation, CN II-XII grossly intact. ABSENT: motor sensory deficit Psychiatric exam: PRESENT: appropriate affect, normal mood. ABSENT: homicidal ideation, suicidal ideation Results Laboratory Results: 08/14/20 06:30 08/14/20 06:30 08/13/20 08/13/20 08/14/20 07:15 07:15 06:30 WBC 11.1 H 10.7 H RBC 4.23 3.97 Hgb 13.1 12.4 Hct 38.0 35.8 L MCV 90 90 MCH 31.0 31.2 MCHC 34.5 34.6 RDW 13.9 14.2 H Plt Count 417 429 Seg Neutrophils % Not Reportable 79.4 H Sodium 138.9 Potassium 4.6 D Chloride 99 Carbon Dioxide 28 Anion Gap 12 BUN 6 L Creatinine 0.34 L Est GFR ( Amer) > 60 Glucose 131 H Calcium 9.2 Magnesium 2.0 Total Bilirubin 0.3 AST 17 Alkaline Phosphatase 106 Total Protein 7.0 Albumin 3.4 L 08/14/20 06:30 WBC RBC Hgb Hct MCV MCH MCHC RDW Plt Count Seg Neutrophils % Sodium 137.5 Potassium 4.0 Chloride 96 L Carbon Dioxide 34 H Anion Gap 8 BUN 12 Creatinine 0.37 L Est GFR ( Amer) > 60 Glucose 100 Calcium 9.4 Magnesium 2.1 Total Bilirubin 0.3 AST 16 Alkaline Phosphatase 89 Total Protein 6.4 Albumin 3.2 L 08/12/20 08/13/20 20:45 02:00 Troponin I 0.013 < 0.012 Impressions: Chest CT 08/12/20 21:52 IMPRESSION: Patchy areas of airspace consolidative change on a background of significant emphysematous change. Presumably, these findings are infectious inflammatory.. Assessment and Plan - Diagnosis (1) Acute respiratory failure Qualifiers: Respiratory failure complication: hypoxia and hypercapnia Qualified Code(s): J96.01 - Acute respiratory failure with hypoxia; J96.02 - Acute respiratory failure with hypercapnia Is this a current diagnosis for this admission?: Yes Plan: Patient presents with 1 week duration of worsening shortness of breath Has a history of COPD and was previously on home oxygen. Patient had run out of her Combivent for past few months Likely precipitated by COPD exacerbation/pneumonia vs COVID-19 ABG pH/PCO2/PO2: 7.39/56/51.7 on 4 L intranasal oxygen Patient currently on 5 L intranasal oxygen to be titrated for saturation between 88 to 92% Albuterol inhaler every 4 hourly as needed Started on ceftriaxone and azithromycin Continue dexamethasone, vitamin C, zinc, vitamin D Home oxygen evaluation before discharge Follow-up with COVID-19 test result 08/13/[id number]-vufj-old female admitted with acute respiratory failure most likely secondary to bilateral pneumonia presently on Rocephin and Zithromax COVID-19 is pending. Pulse ox is 90% on 6 L. To continue dexamethasone, vitamin C, zinc, vitamin D. Receiving albuterol inhaler every 4 hours as needed. 08/14/2020-patient admitted with acute respiratory failure secondary to COPD exacerbation/pneumonia. COVID-19 is pending. Pulse ox is 98% on 5 L. Complaining of cough to start her on Mucinex and to start her on albuterol n ebulizations and to continue albuterol inhalation at this time. (2) Pneumonia Qualifiers: Pneumonia type: due to unspecified organism Laterality: right Lung location: unspecified part of lung Qualified Code(s): J18.9 - Pneumonia, unspecified organism Is this a current diagnosis for this admission?: Yes Plan: Patient presents with cough and worsening shortness of breath Chest CT showed patchy areas of airspace consolidative changes prominently on the right middle and upper lobes Has leukocytosis with left shift Placed on ceftriaxone and azithromycin Follow-up with COVID-19, sputum Gram stain and culture results 08/13/2020-CT scan suggestive of bilateral pneumonia most likely community- acquired pneumonia on IV Rocephin, Zithromax. On admission WBC count is 15,400 improved to 11,100 today. Afebrile. On 6 L of oxygen with pulse ox is around 90%. Blood cultures are pending at this time. Sputum culture is pending. 08/14/2020-patient admitted with community-acquired pneumonia on IV Rocephin, Zithromax. WBC count is 10,700 today normalized. Pulse ox is 98% on 5 L. Plan is to continue albuterol inhalation, started on albuterol nebulizations. Blood cultures are negative so far. COVID-19 is pending. (3) Suspected COVID-19 virus infection Is this a current diagnosis for this admission?: Yes Plan: Patient presents with shortness of breath and cough Symptoms may overlap with COPD exacerbation C-reactive protein elevated, normal ferritin and LDH Continue special airborne isolation Continue ceftriaxone, azithromycin, dexamethasone, zinc, vitamin C, vitamin D 08/13/[id number] test is pending. Plan is to continue Zithromax, Rocephin, dexamethasone, zinc, vitamin C, vitamin D at this time. 08/14/20-COVID-19 is pending. Plan is to continue the present management in the meantime. (4) Acute exacerbation of chronic obstructive pulmonary disease (COPD) Is this a current diagnosis for this admission?: Yes Plan: Patient reports a history of COPD Was previously on home oxygen but was not able to follow-up with PCP Has also been out of her medication Continue intranasal oxygen and titrate for saturation of 88 to 92% Continue antibiotics, steroids and albuterol inhaler Consider home oxygen evaluation before discharge 08/13/2020-patient admitted with COPD exacerbation. Pulse ox is 90% on 6 L. Plan is to continue the antibiotics continue steroids albuterol inhaler at this time. (5) Hypoxemia requiring supplemental oxygen Is this a current diagnosis for this admission?: Yes Plan: Patient presents with shortness of breath ABG showed PO2 of 51% on 4 L internal oxygen Likely due to COPD exacerbation precipitated by pneumonia Continue management as above (6) Tobacco abuse Is this a current diagnosis for this admission?: No (7) Leukocytosis Is this a current diagnosis for this admission?: Yes Plan: 08/14/2020-WBC count is 10,700 normalized. Plan is to continue IV Rocephin and Zithromax at this time. - Time Anticipated Discharge Disposition: Home, Self Care Anticipated Discharge Timeframe: within 72 hours
[2020-08-14] MEDS ORDERED: (PENDING PHARMACY ID) (Buprenorphine Hcl/Naloxone Hcl [Suboxone 8 Mg-2 Mg Sl Film] 1 FILM) SL SCH (10:00)
[2020-08-14] MEDS: GUAIFENESIN 600 MG TABLET.SA PO SCH ×2 (10:16→21:51)
[2020-08-14] MEDS: ENOXAPARIN SODIUM INJ 40 MG/0.4 ML DISP.SYRIN SUBCUT SCH (10:16)
[2020-08-14] MEDS: ZINC SULFATE 220 MG CAPSULE PO SCH (10:16)
[2020-08-14] MEDS: ASCORBIC ACID 500 MG TABLET PO SCH ×2 (10:16→18:01)
[2020-08-14] MEDS: CHOLECALCIFEROL (D3) 1,000 UNIT (25 MCG) TABLET PO SCH (10:16)
[2020-08-14] MEDS: DEXAMETHASONE SOD PHOS INJ 10 MG/1 ML VIAL IV SCH (10:22)
[2020-08-14] MEDS: IPRATROPIUM/ALBUTEROL 0.5-2.5 MG/3 ML AMPUL NEB SCH ×3 (11:34→20:04)
[2020-08-14] MEDS: MELATONIN 5 MG TABLET PO SCH (21:51)
[2020-08-14] MEDS: CEFTRIAXONE 1 GM/D5W RTU 1 GM/50 ML RTUPB IV SCH (21:51)
[2020-08-14] MEDS: AZITHROMYCIN 500 MG in DEXTROSE 5%-WATER 250 ML IV SCH (21:51)
[2020-08-15] MEDS: IPRATROPIUM/ALBUTEROL 0.5-2.5 MG/3 ML AMPUL NEB SCH ×4 (08:18→21:20)
[2020-08-15 08:36] LABS: ABSOLUTE LYMPHOCYTES (AUTO) 1.7 10^3/uL (0.5-4.7); ABSOLUTE MONOCYTES (AUTO) 0.7 10^3/uL (0.1-1.4); ABSOLUTE NEUT (AUTO) 6.9 10^3/uL (1.7-8.2); BASOPHILS % (AUTO) 0.1 % (0-2); EOSINOPHILS % (AUTO) 0.1 % (0-6); HEMATOCRIT 36.6 % (36.0-47.0); HEMOGLOBIN 12.6 g/dL (12.0-15.5); LYMPHOCYTES % (AUTO) 18.7 % (13-45); MEAN CORPUSCULAR HEMOGLOBIN 31.3 pg (27.0-33.4); MEAN CORPUSCULAR HGB CONC 34.3 g/dL (32.0-36.0); MEAN CORPUSCULAR VOLUME 91 fl (80-97); MONOCYTES % (AUTO) 7.2 % (3-13); PLATELET COUNT 463 10^3/uL (150-450); RED BLOOD COUNT 4.01 10^6/uL (3.72-5.28); RED CELL DISTRIBUTION WIDTH 14.2 % (11.5-14.0); SEGMENTED NEUTROPHILS % (AUTO) 73.9 % (42-78); TOTAL CELLS COUNTED % (AUTO) 100 %; WHITE BLOOD COUNT 9.3 10^3/uL (4.0-10.5)
[2020-08-15 08:55] LABS: ALBUMIN 3.3 g/dL (3.5-5.0); ALKALINE PHOSPHATASE 74 U/L (38-126); ANION GAP 9 (5-19); ASPARTATE AMINO TRANSFERASE 15 U/L (14-36); BILIRUBIN,DIRECT 0.3 mg/dL (0.0-0.4); BILIRUBIN,TOTAL 0.3 mg/dL (0.2-1.3); BLOOD UREA NITROGEN 7 mg/dL (7-20); CALCIUM 9.4 mg/dL (8.4-10.2); CARBON DIOXIDE 35 mmol/L (22-30); CHLORIDE 95 mmol/L (98-107); GLUCOSE 134 mg/dL (75-110); POTASSIUM 3.8 mmol/L (3.6-5.0); TOTAL PROTEIN 6.5 g/dL (6.3-8.2)
--- NOTE | 2020-08-15 09:10 | PDOC PROGRESS REPORT ---
Subjective Progress Note for:: 08/15/20 Subjective:: 49 year old female with a history of COPD presents with worsening shortness of breath and cough for the past 1 to 2 weeks. Patient states that she has a chronic longstanding cough which she describes as 'smoker's cough' but over the past week it has gotten worse and has become more productive of clear sputum but denies any history of hemoptysis. Associated with this she also reports progressively worsening shortness of breath. Shortness of breath was initially exertional but it got worse to a level where she was symptomatic at rest. Patient was previously on 2 L home oxygen but she states that she was not able to follow-up with her primary care doctor and has not been able to get replacement for the past few years. Per previous admission notes patient is known to be non compliant with her medications. She also states that she has been out of her COPD medication(combivent) for few months. She denies any fever, chills, night sweating, body aches, runny nose or any recent travel. She also denies any recent history of contact with sick patient. She reports that she quit smoking 3 weeks back after she started having worsening in her shortness of breath. She states that she has a good appetite, has no nausea of vomiting and has not noticed any change in her weight recently. 08/13/[id number]-npkv-old female with history of COPD not on home oxygen ex-smoker came to the emergency room with complaints of shortness of breath and cough. Denies any fever. CT scan of the chest suggestive of airspace opacities. Pulse ox is 90% on 6 L of oxygen this morning. Comfortably in the bed communicating well. Plan is to continue IV Zithromax and ceftriaxone at this time. COVID-19 is pending. 08/14/20207564-35-vkeg-old female with history of COPD, ex-smoker admitted with COPD exacerbation and acute on chronic respiratory failure. COVID-19 is pending. Complaining of cough requesting cough medications. Blood cultures are negative so far. Labs are within normal limits. 08/15/2020-no acute events in the last 24 hours. Pulse ox is 100% on 10 L of oxygen. Plan is to taper off the oxygen requirements. Comfortably in the bed communicating well. COVID-19 is negative. Blood pressure stable. WBC within normal limits. Reason For Visit: PNEUMONIA Physical Exam Vital Signs: Temp Pulse Resp BP Pulse Ox 97.7 F 88 20 109/45 L 96 08/15/20 07:46 08/15/20 08:21 08/15/20 08:21 08/15/20 07:46 08/15/20 08:21 Pulse Oximeter Continuous Start: 08/13/20 02:23 Freq: RTQ4 Status: Hold Protocol: Document 08/15/20 04:39 PMU (Rec: 08/15/20 05:58 PMU [email or web address]) Pulse Oximetry Assessment Oxygen Saturation (92-100) 100 Oxygen Flow Rate (L/min) 10 Oxygen Delivery Method Simple Mask Fraction of Inspired Oxygen (FIO2) 70 Equipment Usage Equipment Standby Continuous SpO2 Machine # - Intake & Output 08/14/20 08/15/20 08/16/20 06:59 06:59 06:59 Intake Total 1438 1140 Balance 1438 1140 Weight 52.2 kg 53.2 kg General appearance: PRESENT: no acute distress, cooperative, thin Head exam: PRESENT: atraumatic Eye exam: PRESENT: PERRLA Mouth exam: PRESENT: moist, tongue midline Teeth exam: PRESENT: poor dentation Neck exam: ABSENT: carotid bruit, JVD, lymphadenopathy, thyromegaly Respiratory exam: PRESENT: decreased breath sounds, wheezes Cardiovascular exam: PRESENT: RRR. ABSENT: diastolic murmur, rubs, systolic murmur GI/Abdominal exam: PRESENT: normal bowel sounds, soft. ABSENT: distended, guarding, mass, organolmegaly, rebound, tenderness Rectal exam: PRESENT: deferred Extremities exam: PRESENT: full ROM. ABSENT: calf tenderness, clubbing, pedal edema Neurological exam: PRESENT: alert, awake, oriented to person, oriented to place, oriented to time, oriented to situation, CN II-XII grossly intact. ABSENT: motor sensory deficit Psychiatric exam: PRESENT: appropriate affect, normal mood. ABSENT: homicidal ideation, suicidal ideation Results Laboratory Results: 08/15/20 08:01 08/15/20 08:01 08/15/20 08/15/20 08:01 08:01 WBC 9.3 RBC 4.01 Hgb 12.6 Hct 36.6 MCV 91 MCH 31.3 MCHC 34.3 RDW 14.2 H Plt Count 463 H Seg Neutrophils % 73.9 Sodium 138.7 Potassium 3.8 Chloride 95 L Carbon Dioxide 35 H Anion Gap 9 BUN 7 Creatinine 0.42 L Est GFR ( Amer) > 60 Glucose 134 H Calcium 9.4 Magnesium 2.1 Total Bilirubin 0.3 AST 15 Alkaline Phosphatase 74 Total Protein 6.5 Albumin 3.3 L 08/12/20 08/13/20 20:45 02:00 Troponin I 0.013 < 0.012 Impressions: Chest CT 08/12/20 21:52 IMPRESSION: Patchy areas of airspace consolidative change on a background of significant emphysematous change. Presumably, these findings are infectious inflammatory.. Assessment and Plan - Diagnosis (1) Acute respiratory failure Qualifiers: Respiratory failure complication: hypoxia and hypercapnia Qualified Code(s): J96.01 - Acute respiratory failure with hypoxia; J96.02 - Acute respiratory failure with hypercapnia Is this a current diagnosis for this admission?: Yes Plan: Patient presents with 1 week duration of worsening shortness of breath Has a history of COPD and was previously on home oxygen. Patient had run out of her Combivent for past few months Likely precipitated by COPD exacerbation/pneumonia vs COVID-19 ABG pH/PCO2/PO2: 7.39/56/51.7 on 4 L intranasal oxygen Patient currently on 5 L intranasal oxygen to be titrated for saturation between 88 to 92% Albuterol inhaler every 4 hourly as needed Started on ceftriaxone and azithromycin Continue dexamethasone, vitamin C, zinc, vitamin D Home oxygen evaluation before discharge Follow-up with COVID-19 test result 08/13/20200718-45-zssx-old female admitted with acute respiratory failure most likely secondary to bilateral pneumonia presently on Rocephin and Zithromax COVID-19 is pending. Pulse ox is 90% on 6 L. To continue dexamethasone, vitamin C, zinc, vitamin D. Receiving albuterol inhaler every 4 hours as needed. 08/14/2020-patient admitted with acute respiratory failure secondary to COPD exacerbation/pneumonia. COVID-19 is pending. Pulse ox is 98% on 5 L. Complaining of cough to start her on Mucinex and to start her on albuterol nebulizations and to continue albuterol inhalation at this time. 08/15/20202759-46-ekgn-old female with history of COPD not on home oxygen ex-smoker admitted with COPD exacerbation/pneumonia. COVID-19 is negative. Pulse ox is 100% on 10 L of oxygen. Receiving albuterol nebulizations, inhalers. Comfortably in the bed communicating well. On examination bilateral entry was severely decreased, to continue albuterol nebulizations, albuterol inhalers. Blood cultures are negative so far. (2) Pneumonia Qualifiers: Pneumonia type: due to unspecified organism Laterality: right Lung location: unspecified part of lung Qualified Code(s): J18.9 - Pneumonia, unspecified organism Is this a current diagnosis for this admission?: Yes Plan: Patient presents with cough and worsening shortness of breath Chest CT showed patchy areas of airspace consolidative changes prominently on the right middle and upper lobes Has leukocytosis with left shift Placed on ceftriaxone and azithromycin Follow-up with COVID-19, sputum Gram stain and culture results 08/13/2020-CT scan suggestive of bilateral pneumonia most likely community- acquired pneumonia on IV Rocephin, Zithromax. On admission WBC count is 15,400 improved to 11,100 today. Afebrile. On 6 L of oxygen with pulse ox is around 90%. Blood cultures are pending at this time. Sputum culture is pending. 08/14/2020-patient admitted with community-acquired pneumonia on IV Rocephin, Zithromax. WBC count is 10,700 today normalized. Pulse ox is 98% on 5 L. Plan is to continue albuterol inhalation, started on albuterol nebulizations. Blood cultures are negative so far. COVID-19 is pending. 08/15/[id number]-[id number]-42 is negative. Patient admitted with computed acquired pneumonia continue IV Rocephin and Zithromax at this time. WBC count is 9300 normalized. On 10 L of oxygen pulse ox is 100%. (3) Suspected COVID-19 virus infection Is this a current diagnosis for this admission?: Yes Plan: Patient presents with shortness of breath and cough Symptoms may overlap with COPD exacerbation C-reactive protein elevated, normal ferritin and LDH Continue special airborne isolation Continue ceftriaxone, azithromycin, dexamethasone, zinc, vitamin C, vitamin D 08/13/[id number] test is pending. Plan is to continue Zithromax, Rocephin, dexamethasone, zinc, vitamin C, vitamin D at this time. 08/14/20-COVID-19 is pending. Plan is to continue the present management in the meantime. 08/15/[id number]-[id number]-31 is negative. To discontinue dexamethasone at this time. (4) Acute exacerbation of chronic obstructive pulmonary disease (COPD) Is this a current diagnosis for this admission?: Yes Plan: Patient reports a history of COPD Was previously on home oxygen but was not able to follow-up with PCP Has also been out of her medication Continue intranasal oxygen and titrate for saturation of 88 to 92% Continue antibiotics, steroids and albuterol inhaler Consider home oxygen evaluation before discharge 08/13/2020-patient admitted with COPD exacerbation. Pulse ox is 90% on 6 L. Plan is to continue the antibiotics continue steroids albuterol inhaler at this time. 08/15/2020-patient admitted with COPD exacerbation. Pulse ox is 100% on 10 L. Discussed the care with the respiratory therapist plan is to decrease the oxygen supplementations. (5) Hypoxemia requiring supplemental oxygen Is this a current diagnosis for this admission?: Yes Plan: Patient presents with shortness of breath ABG showed PO2 of 51% on 4 L internal oxygen Likely due to COPD exacerbation precipitated by pneumonia Continue management as above (6) Tobacco abuse Is this a current diagnosis for this admission?: No Plan: Patient reports that she quit smoking 3 weeks back (7) Leukocytosis Is this a current diagnosis for this admission?: Yes Plan: 08/14/2020-WBC count is 10,700 normalized. Plan is to continue IV Rocephin and Zithromax at this time. - Time Anticipated Discharge Disposition: Home, Self Care Anticipated Discharge Timeframe: within 72 hours
[2020-08-15] MEDS: CHOLECALCIFEROL (D3) 1,000 UNIT (25 MCG) TABLET PO SCH (09:51)
[2020-08-15] MEDS: ENOXAPARIN SODIUM INJ 40 MG/0.4 ML DISP.SYRIN SUBCUT SCH (09:51)
[2020-08-15] MEDS: ZINC SULFATE 220 MG CAPSULE PO SCH (09:52)
[2020-08-15] MEDS: ASCORBIC ACID 500 MG TABLET PO SCH ×2 (09:52→17:27)
[2020-08-15] MEDS: GUAIFENESIN 600 MG TABLET.SA PO SCH (09:52)
--- NOTE | 2020-08-15 10:31 | RADIOLOGY REPORT (SQ) ---
EXAM DESCRIPTION: CHEST 2 VIEWS IMAGES COMPLETED DATE/TIME: 08/15/2020 9:33 am REASON FOR STUDY: pneumonia COMPARISON: 08/12/2020. NUMBER OF VIEWS: Two view TECHNIQUE: Frontal and lateral radiographic images of the chest acquired. LIMITATIONS: None. FINDINGS: LUNGS AND PLEURA: Patchy airspace disease primarily in the right lung not significantly ch anged. There is a background of emphysema and chronic bronchiectasis. No effusions. MEDIASTINUM AND HILAR STRUCTURES: Stable heart size and mediastinal structures. HEART AND VASCULAR STRUCTURES: Stable appearance. BONES: No acute findings. HARDWARE: None in the chest. OTHER: No other significant finding. IMPRESSION: STABLE APPEARANCE OF THE CHEST. TECHNICAL DOCUMENTATION: JOB ID: [id number] 2010 [employer]- All Rights Reserved Reading location - IP/workstation name: [email or web address]
[2020-08-15] MEDS ORDERED: GUAIFENESIN/CODEINE PHOS 100-10 MG/ 5 ML UDC PO PRN (10:55)
[2020-08-15] MEDS: AZITHROMYCIN 500 MG in DEXTROSE 5%-WATER 250 ML IV SCH (21:50)
[2020-08-15] MEDS: CEFTRIAXONE 1 GM/D5W RTU 1 GM/50 ML RTUPB IV SCH (21:50)
[2020-08-15] MEDS: MELATONIN 5 MG TABLET PO SCH (21:50)
[2020-08-16] MEDS: ASCORBIC ACID 500 MG TABLET PO SCH ×2 (09:24→17:25)
[2020-08-16] MEDS: CHOLECALCIFEROL (D3) 1,000 UNIT (25 MCG) TABLET PO SCH (09:24)
[2020-08-16] MEDS: ZINC SULFATE 220 MG CAPSULE PO SCH (09:24)
[2020-08-16] MEDS: ENOXAPARIN SODIUM INJ 40 MG/0.4 ML DISP.SYRIN SUBCUT SCH (09:27)
[2020-08-16] MEDS: IPRATROPIUM/ALBUTEROL 0.5-2.5 MG/3 ML AMPUL NEB SCH ×4 (09:35→21:13)
--- NOTE | 2020-08-16 16:38 | PDOC PROGRESS REPORT ---
Subjective Subjective:: Per Previous Physician: "49 year old female with a history of COPD presents with worsening shortness of breath and cough for the past 1 to 2 weeks. Patient states that she has a chronic longstanding cough which she describes as 'smoker's cough' but over the past week it has gotten worse and has become more productive of clear sputum but denies any history of hemoptysis. Associated with this she also reports progressively worsening shortness of breath. Shortness of breath was initially exertional but it got worse to a level where she was symptomatic at rest. Patient was previously on 2 L home oxygen but she states that she was not able to follow-up with her primary care doctor and has not been able to get rep lacement for the past few years. Per previous admission notes patient is known to be non compliant with her medications. She also states that she has been out of her COPD medication(combivent) for few months. She denies any fever, chills, night sweating, body aches, runny nose or any recent travel. She also denies any recent history of contact with sick patient. She reports that she quit smoking 3 weeks back after she started having worsening in her shortness of breath. She states that she has a good appetite, has no nausea of vomiting and has not noticed any change in her weight recently. 08/13/20208760-53-bvwt-old female with history of COPD not on home oxygen ex-smoker came to the emergency room with complaints of shortness of breath and cough. Denies any fever. CT scan of the chest suggestive of airspace opacities. Pulse ox is 90% on 6 L of oxygen this morning. Comfortably in the bed communicating well. Plan is to continue IV Zithromax and ceftriaxone at this time. COVID-19 is pending. 08/14/20207209-61-jxru-old female with history of COPD, ex-smoker admitted with COPD exacerbation and acute on chronic respiratory failure. COVID-19 is pending. Complaining of cough requesting cough medications. Blood cultures are negative so far. Labs are within normal limits. 08/15/2020-no acute events in the last 24 hours. Pulse ox is 100% on 10 L of oxygen. Plan is to taper off the oxygen requirements. Comfortably in the bed communicating well. COVID-19 is negative. Blood pressure stable. WBC within normal limits." 08/16/2020 Patient very reluctant to wean her oxygen today but after long discussion she agreed to take off her face tent. She refuses to use a nasal cannula at this time and would prefer to just take the oxygen off altogether. Discussed with nursing. Blood cultures negative, respiratory culture negative, continued on ceftriaxone and azithromycin, no new complaints. Reason For Visit: PNEUMONIA Physical Exam Vital Signs: Temp Pulse Resp BP Pulse Ox 97.6 F 74 18 114/49 L 95 08/16/20 11:17 08/16/20 16:04 08/16/20 16:04 08/16/20 11:17 08/16/20 16:04 Pulse Oximeter Continuous Start: 08/13/20 02:23 Freq: RTQ4 Status: Hold Protocol: Document 08/15/20 04:39 PMU (Rec: 08/15/20 05:58 PMU [email or web address]) Pulse Oximetry Assessment Oxygen Saturation (92-100) 100 Oxygen Flow Rate (L/min) 10 Oxygen Delivery Method Simple Mask Fraction of Inspired Oxygen (FIO2) 70 Equipment Usage Equipment Standby Continuous SpO2 Machine # - Intake & Output 08/15/20 08/16/20 08/17/20 06:59 06:59 06:59 Intake Total 1140 1694 342 Balance 1140 1694 342 Weight 53.2 kg 53.2 kg General appearance: PRESENT: no acute distress, well-developed, well-nourished Head exam: PRESENT: atraumatic, normocephalic Eye exam: PRESENT: conjunctiva pink. ABSENT: scleral icterus Mouth exam: PRESENT: moist Respiratory exam: PRESENT: wheezes - Prominent bilateral. ABSENT: rales, rhonchi Cardiovascular exam: PRESENT: RRR. ABSENT: diastolic murmur, rubs, systolic murmur GI/Abdominal exam: PRESENT: normal bowel sounds, soft. ABSENT: distended, guarding, mass, organolmegaly, rebound, tenderness Psychiatric exam: PRESENT: appropriate affect, normal mood Skin exam: PRESENT: dry, intact, warm Results Laboratory Results: 08/15/20 08:01 08/15/20 08:01 08/12/20 08/13/20 20:45 02:00 Troponin I 0.013 < 0.012 Impressions: Chest CT 08/12/20 21:52 IMPRESSION: Patchy areas of airspace consolidative change on a background of significant emphysematous change. Presumably, these findings are infectious inflammatory.. Chest X-Ray 08/15/20 00:00 IMPRESSION: STABLE APPEARANCE OF THE CHEST. Assessment and Plan - Diagnosis (1) Acute exacerbation of chronic obstructive pulmonary disease (COPD) Is this a current diagnosis for this admission?: Yes Plan: Per Previous Physician: "Patient reports a history of COPD Was previously on home oxygen but was not able to follow-up with PCP Has also been out of her medication Continue intranasal oxygen and titrate for saturation of 88 to 92% Continue antibiotics, steroids and albuterol inhaler Consider home oxygen evaluation before discharge 08/13/2020-patient admitted with COPD exacerbation. Pulse ox is 90% on 6 L. Plan is to continue the antibiotics continue steroids albuterol inhaler at this time. 08/15/2020-patient admitted with COPD exacerbation. Pulse ox is 100% on 10 L. Discussed the care with the respiratory therapist plan is to decrease the oxygen supplementations." 08/16/2020 Wean supplemental oxygen to maintain saturation of 89 to 92% in the setting of COPD, possible she does not need submental oxygen as she has been without it for the last year and states that she has been stable Previously on 2 L nasal cannula over 1 year ago then stopped getting her oxygen deliveries (2) Pneumonia Qualifiers: Pneumonia type: due to unspecified organism Laterality: right Lung location: unspecified part of lung Qualified Code(s): J18.9 - Pneumonia, unspecified organism Is this a current diagnosis for this admission?: Yes Plan: Per Previous Physician: "Patient presents with cough and worsening shortness of breath Chest CT showed patchy areas of airspace consolidative changes prominently on the right middle and upper lobes Has leukocytosis with left shift Placed on ceftriaxone and azithromycin Follow-up with COVID-19, sputum Gram stain and culture results 08/13/2020-CT scan suggestive of bilateral pneumonia most likely community- acquired pneumonia on IV Rocephin, Zithromax. On admission WBC count is 15,400 improved to 11,100 today. Afebrile. On 6 L of oxygen with pulse ox is around 90%. Blood cultures are pending at this time. Sputum culture is pending. 08/14/2020-patient admitted with community-acquired pneumonia on IV Rocephin, Zithromax. WBC count is 10,700 today normalized. Pulse ox is 98% on 5 L. Plan is to continue albuterol inhalation, started on albuterol nebulizations. Blood cultures are negative so far. COVID-19 is pending. 08/15/20205066-[id number]-45 is negative. Patient admitted with computed acquired pneumonia continue IV Rocephin and Zithromax at this time. WBC count is 9300 normalized. On 10 L of oxygen pulse ox is 100%." 08/16/2020 -acute bacterial pneumonia, unknown pathogen, gram negative suspected -abx: Ceftriaxone azithromycin -bcx negative -rcx negative -supplemental O2 as appropriate -cxr showed severe chronic lung disease with emphysema and interstitial abnormalities CT chest without contrast showed consolidative changes consistent with pneumonia (3) Acute respiratory failure Qualifiers: Respiratory failure complication: hypoxia and hypercapnia Qualified Code(s): J96.01 - Acute respiratory failure with hypoxia; J96.02 - Acute respiratory failure with hypercapnia Is this a current diagnosis for this admission?: Yes Plan: Per Previous Physician: "Patient presents with 1 week duration of worsening shortness of breath Has a history of COPD and was previously on home oxygen. Patient had run out of her Combivent for past few months Likely precipitated by COPD exacerbation/pneumonia vs COVID-19 ABG pH/PCO2/PO2: 7.39/56/51.7 on 4 L intranasal oxygen Patient currently on 5 L intranasal oxygen to be titrated for saturation between 88 to 92% Albuterol inhaler every 4 hourly as needed Started on ceftriaxone and azithromycin Continue dexamethasone, vitamin C, zinc, vitamin D Home oxygen evaluation before discharge Follow-up with COVID-19 test result 08/13/20201804-57-sptz-old female admitted with acute respiratory failure most likely secondary to bilateral pneumonia presently on Rocephin and Zithromax COVID-19 is pending. Pulse ox is 90% on 6 L. To continue dexamethasone, vitamin C, zinc, vitamin D. Receiving albuterol inhaler every 4 hours as needed. 08/14/2020-patient admitted with acute respiratory failure secondary to COPD e xacerbation/pneumonia. COVID-19 is pending. Pulse ox is 98% on 5 L. Complaining of cough to start her on Mucinex and to start her on albuterol nebulizations and to continue albuterol inhalation at this time. 08/15/20206431-89-egts-old female with history of COPD not on home oxygen ex-smoker admitted with COPD exacerbation/pneumonia. COVID-19 is negative. Pulse ox is 100% on 10 L of oxygen. Receiving albuterol nebulizations, inhalers. Comfortably in the bed communicating well. On examination bilateral entry was severely decreased, to continue albuterol nebulizations, albuterol inhalers. B lood cultures are negative so far." 08/16/2020 Gradual improvement, weaning oxygen as able (4) Suspected COVID-19 virus infection Is this a current diagnosis for this admission?: Yes Plan: Per Previous Physician: "Patient presents with shortness of breath and cough Symptoms may overlap with COPD exacerbation C-reactive protein elevated, normal ferritin and LDH Continue special airborne isolation Continue ceftriaxone, azithromycin, dexamethasone, zinc, vitamin C, vitamin D 08/13/[id number]-[id number]-58 test is pending. Plan is to continue Zithromax, Rocephin, dexamethasone, zinc, vitamin C, vitamin D at this time. 08/14/20-COVID-19 is pending. Plan is to continue the present management in the meantime. 08/15/20205506-CORQX-13 is negative. To discontinue dexamethasone at this time." COVID negative (5) Apical bullous lung disease Is this a current diagnosis for this admission?: Yes (6) COPD with acute exacerbation Is this a current diagnosis for this admission?: Yes (7) Tobacco abuse Is this a current diagnosis for this admission?: No Plan: Counseled on cessation - Time Time Spent with patient: 25-34 minutes Medications reviewed and adjusted accordingly: Yes Anticipated Discharge Disposition: Home, Self Care Anticipated Discharge Timeframe: within 48 hours - Inpatient Certification Based on my medical assessment, after consideration of the patient's comorbidities, presenting symptoms, or acuity I expect that the services needed warrant INPATIENT care.: Yes I certify that my determination is in accordance with my understanding of Medicare's requirements for reasonable and necessary INPATIENT services [42 CFR 412.3e].: Yes Medical Necessity: Significant Comorbidiites Make Outpatient Treatment Too Risky, Need Close Monitoring Due to Risk of Patient Decompensation, Need for IV Antibiotics, Risk of Complication if Not Cared For in Hospital, Risk of Diagno sis Which Will Require Inpatient Eval/Care/Monitoring
[2020-08-16] MEDS: MELATONIN 5 MG TABLET PO SCH (21:35)
[2020-08-16] MEDS: CEFTRIAXONE 1 GM/D5W RTU 1 GM/50 ML RTUPB IV SCH (21:35)
[2020-08-16] MEDS: AZITHROMYCIN 500 MG in DEXTROSE 5%-WATER 250 ML IV SCH (21:36)
[2020-08-17] MEDS: IPRATROPIUM/ALBUTEROL 0.5-2.5 MG/3 ML AMPUL NEB SCH ×3 (09:00→16:21)
[2020-08-17] MEDS: ENOXAPARIN SODIUM INJ 40 MG/0.4 ML DISP.SYRIN SUBCUT SCH (09:20)
[2020-08-17] MEDS: ZINC SULFATE 220 MG CAPSULE PO SCH (09:20)
[2020-08-17] MEDS: CHOLECALCIFEROL (D3) 1,000 UNIT (25 MCG) TABLET PO SCH (09:20)
[2020-08-17] MEDS: ASCORBIC ACID 500 MG TABLET PO SCH (09:20)
[2020-08-17 12:04] VITALS: BP 106/54
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
== END 2020-08-17 17:00 | disposition home or self-care (01) | DRG 193 ==
LOC: ER 19:28 → EH 08-13 01:50 → 3W 08-13 04:30
PROVIDERS: ADMIT Student in an Organized Health Care Education/Training Program; ATTEND Internal Medicine
DX: J18.9 Pneumonia, unspecified organism (principal); J96.21 Acute and chronic respiratory failure with hypoxia; J44.1 Chronic obstructive pulmonary disease with (acute) exacerbation; J44.0 Chronic obstructive pulmonary disease with (acute) lower respiratory infection; M41.20 Other idiopathic scoliosis, site unspecified; Z20.828 Contact with and (suspected) exposure to other viral communicable diseases; Z23 Encounter for immunization; T48.6X6A Underdosing of antiasthmatics, initial encounter; Z91.128 Patient's intentional underdosing of medication regimen for other reason; Z87.891 Personal history of nicotine dependence
CPT/HCPCS: 36415; 71045; 71046; 71250; 80053; 81001; 81025; 82728; 82803; 83605; 83615; 83735; 84484; 85025; 86140; 87040; 87070; 87205; 87635; 87804; 90471; 90686; 93005; 93010; 94640; 96365; 96367; 96375; 99281; C9803; G0008; J0456; J0696; J1100; J1650; J2930; J3490; J7030; J7060; J7613